=== PATIENT | male | born 1960 | race Caucasian/White ===

== ENCOUNTER → 2018-10-18 | Day surgery (SDC) | payer OTHER ==
[~2018-10-18] MED LIST: LACTATED RINGERS 1,000 ML IV SCH; LIDOCAINE 1% 20 ML VIAL (10MG/ML) FOR IV START INTRADERMA ONE; MIDAZOLAM 2 MG/2 ML VIAL ONE; PROPOFOL 10 MG/ML 20 ML VIAL IV ONE; fentaNYL (PF) 50 MCG/ML 2 ML AMP ONE
[2018-10-18 11:57] VITALS: RESP 16; TEMP 97.8
--- NOTE | 2018-10-18 13:09 | P.PCN ---
Date of Procedure: 10/18/18 Procedure(s) Performed: BRIEF HISTORY: Patient is a 58-year-old pleasant white male, scheduled for an elective colonoscopy as a part of screening for colorectal neoplasia. PROCEDURE PERFORMED: Colonoscopy with snare polypectomy. PREOPERATIVE DIAGNOSIS: Screening for colon cancer. IV sedation per Anesthesia. PROCEDURE: After informed consent was obtained, the patient, was brought into the endoscopy unit. IV sedation was administered by Anesthesia under continuous monitoring. Digital rectal examination was normal. Initially the Olympus CF-160 flexible video colonoscope was then inserted in the rectum, gradually advanced into the cecum without any difficulty. Careful examination was performed as the scope was gradually being withdrawn. Ileocecal valve and the appendiceal orifice were visualized and appeared normal. Prep was excellent. Mucosa of the cecum, ascending colon, transverse colon, descending colon, appeared normal. In the distal sigmoid colon there was a 5 mm polyp that was removed by snare polypectomy. In the mid rectum there were 2 polyps measuring 5 mm and 1 cm size both of which were removed by snare polypectomy. sigmoid colon, and rectum appeared normal. Retroflexion was performed in the rectum and grade 2 internal hemorrhoids were seen. The patient tolerated the procedure well. IMPRESSION: 5 mm and 1 cm polyps in the rectum status post polypectomy 5 mm sigmoid colon polyp status post snare polypectomy Grade 2 internal hemorrhoids RECOMMENDATIONS: Findings of this examination were discussed with the patient as well as his family. He was advised to follow with the biopsy results. If the biopsy shows an adenoma, he can have a repeat colonoscopy in 3-5 years.
[2018-10-18 13:58] VITALS: BP 125/80; PULSE 61
== END ==
LOC: ORWHC2ENDO 10:57
PROVIDERS: ATTEND Internal Medicine Gastroenterology
DX: Z12.11 Encounter for screening for malignant neoplasm of colon (principal); K63.5 Polyp of colon; D12.8 Benign neoplasm of rectum; K64.1 Second degree hemorrhoids; F17.210 Nicotine dependence, cigarettes, uncomplicated; I10 Essential (primary) hypertension; E78.5 Hyperlipidemia, unspecified; M06.9 Rheumatoid arthritis, unspecified; K21.9 Gastro-esophageal reflux disease without esophagitis; Z79.1 Long term (current) use of non-steroidal anti-inflammatories (NSAID); Z79.899 Other long term (current) drug therapy
CPT/HCPCS: 88305; 45385; J2250; J3010; J2704

== ENCOUNTER 2020-02-05 10:20 | Inpatient (IN) | payer OTHER ==
[2020-02-05] MEDS: NITROGLYCERIN SL TABS 0.4 MG TAB SUBLINGUAL STA ×2 (10:25→10:33)
[2020-02-05] MEDS ORDERED: HEPARIN SODIUM,PORCINE 5,000 UNIT/ML 1 ML VIAL IV ONE (10:25)
--- NOTE | 2020-02-05 10:31 | ED ---
Chest Pain HPI - General Chief Complaint: Chest Pain Stated Complaint: Stemi Time Seen by Provider: 02/05/20 10:20 Source: patient, RN notes reviewed, old records reviewed Mode of arrival: EMS Limitations: no limitations - History of Present Illness Initial Comments: This is a 60-year-old male with past medical history significant for smoking high blood pressure and high cholesterol. Patient states last night about 9:00 he started having chest discomfort. Patient states the pain radiated down both arms he was mildly short of breath per patient states it's a little better today but it kept him up most of the night and he continued to have pain today so he went to the urgent care and from there they sent him to the emergency department. Patient states the pain is still in his chest but not in his arms at this time. A shunt denies any recent fever chills or cough per patient denies lightheadedness or dizziness. Patient denies abdominal pain. Patient denies nausea vomiting diarrhea. Denies any swelling to the legs or calf tenderness. - Related Data Home Medications Medication Instructions Recorded Confirmed Atorvastatin Calcium [Lipitor] 40 mg PO DAILY 10/18/18 10/18/18 Cholecalciferol (Vitamin D3) 2,000 unit PO DAILY 10/18/18 10/18/18 [Vitamin D3] Cholecalciferol [Vitamin D3] 1,000 unit PO DAILY 10/18/18 10/18/18 Ibuprofen [Motrin] 1 tab PO Q6HR PRN 10/18/18 10/18/18 Lueders-3 Fatty Acids/Fish Oil [Fish 1 tab PO DAILY 10/18/18 10/18/18 Oil 1,000 mg Softgel] Omeprazole 20 mg PO DAILY 10/18/18 10/18/18 hydroCHLOROthiazide 25 mg PO DAILY 10/18/18 10/18/18 lisinopriL 20 mg PO DAILY 10/18/18 10/18/18 Allergies Allergy/AdvReac Type Severity Reaction Status Date / Time No Known Allergies Allergy Verified 02/05/20 10:21 Review of Systems ROS Statement: Those systems with pertinent positive or pertinent negative responses have been documented in the HPI. ROS Other: All systems not noted in ROS Statement are negative. Past Medical History Past Medical History: No Reported History, GERD/Reflux, Hyperlipidemia, Hypertension, Rheumatoid Arthritis (RA) History of Any Multi-Drug Resistant Organisms: None Reported Past Surgical History: Back Surgery, Hernia Repair Additional Past Surgical History / Comment(s): NASOSEPTO RECONSTRUCTION ELBOW RIGHT NERVE IMPAIRMENT FIXED UMBILICAL HERNIA FUSION C5 AND 6 Past Anesthesia/Blood Transfusion Reactions: No Reported Reaction Past Psychological History: No Psychological Hx Reported Smoking Status: Current every day smoker Past Alcohol Use History: Daily Past Drug Use History: None Reported General Exam - General Exam Comments Initial Comments: GENERAL: Patient is well-developed and well-nourished. Patient is nontoxic and well- hydrated and is in mild distress. ENT: Neck is soft and supple. No significant lymphadenopathy is noted. Oropharynx is clear. Moist mucous membranes. Neck has full range of motion without eliciting any pain. EYES: The sclera were anicteric and conjunctiva were pink and moist. Extraocular movements were intact and pupils were equal round and reactive to light. Eyelids were unremarkable. PULMONARY: Unlabored respirations. Good breath sounds bilaterally. No audible rales rhonchi or wheezing was noted. CARDIOVASCULAR: There is a regular rate and rhythm without any murmurs gallops or rubs. ABDOMEN: Soft and nontender with normal bowel sounds. SKIN: Skin is clear with no lesions or rashes and otherwise unremarkable. NEUROLOGIC: Patient is alert and oriented x3. Cranial nerves II through XII are grossly intact. Motor and sensory are also intact. Normal speech, volume and content. Symmetrical smile. MUSCULOSKELETAL: Normal extremities with adequate strength and full range of motion. No edema no calf tenderness LYMPHATICS: No significant lymphadenopathy is noted PSYCHIATRIC: Normal psychiatric evaluation. Limitations: no limitations Course Vital Signs 02/05/20 10:21 Temperature 98.1 F Pulse Rate 100 Respiratory 18 Rate Blood Pressure 184/112 O2 Sat by Pulse [address] [facility] EKG shows normal sinus rhythm at 93 bpm WV interval 226 dresses 92 QT interval 344 QTC is 427. Patient's EKG shows ST segment elevation in inferior leads II, III, and F aVF and ST segment depression in V5 and V6 1 and aVL. Patient symmetrical smile and the emergency department liter of fluid as well as a heparin bolus. I called a STEMI overhead I spoke with Dr. Barnes shortly thereafter. Critical Care Time Critical Care Time: Yes Total Critical Care Time: 35 Disposition Clinical Impression: ST elevation myocardial infarction (STEMI) Disposition: ADMITTED IP TO THIS HOSP Referrals: [facility],Clinic [Primary Care Provider] - 1-2 days Time of Disposition: 10:31
[2020-02-05 10:37] LABS: Basophils # (A) 0.1 k/uL (0-0.2); Basophils % (A) 0 %; Eosinophils # (A) 0.1 k/uL (0-0.7); Eosinophils % (A) 1 %; HCT 53.4 % (39.0-53.0); HGB 17.6 gm/dL (13.0-17.5); Lymphocytes # (A) 0.8 k/uL (1.0-4.8); Lymphocytes % (A) 6 %; MCH 30.4 pg (25.0-35.0); MCHC 32.9 g/dL (31.0-37.0); MCV 92.4 fL (80.0-100.0); Mean Platelet Volume 7.6; Monocytes # (A) 0.5 k/uL (0-1.0); Monocytes % (A) 3 %; Neutrophils # (A) 12.7 k/uL (1.3-7.7); Neutrophils % (A) 90 %; Platelet Count 212 k/uL (150-450); RBC 5.78 m/uL (4.30-5.90); RDW 13.1 % (11.5-15.5); WBC 14.2 k/uL (3.8-10.6)
[2020-02-05] MEDS ORDERED: NITROGLYCERIN OINT 1 INCH/GM PACKET TOPICAL STA (10:38)
--- NOTE | 2020-02-05 10:43 | XR ---
EXAMINATION TYPE: XR chest 1V portable DATE OF EXAM: 02/05/2020 COMPARISON: Chest x-ray March 20, 2013. HISTORY: Chest pain today. TECHNIQUE: Single AP portable frontal view of the chest is obtained. FINDINGS: Overlying EKG leads and right upper lung defibrillator pad on current study. There is no fo jose air space opacity, pleural effusion, or pneumothorax seen. The cardiac silhouette size remains w ithin normal limits. Partial visualization of fusion plate in the cervical spine. IMPRESSION: No acute cardiopulmonary process.
[2020-02-05 10:46] LABS: ALT 67 U/L (4-49); AST 135 U/L (17-59); African American GFR (CKD) >90 (>60 ml/min/1.73 sqM); Alkaline Phosphatase 95 U/L (38-126); Anion Gap 10 mmol/L; Blood Urea Nitrogen 13 mg/dL (9-20); Calcium 10.7 mg/dL (8.4-10.2); Carbon Dioxide 28 mmol/L (22-30); Chloride 100 mmol/L (98-107); Glucose 147 mg/dL (74-99); Magnesium 1.6 mg/dL (1.6-2.3); Non-African American GFR(CKD) >90 (>60 ml/min/1.73 sqM); Potassium 4.3 mmol/L (3.5-5.1); Sodium 138 mmol/L (137-145); Total Bilirubin 0.8 mg/dL (0.2-1.3); Total Protein 8.1 g/dL (6.3-8.2)
[2020-02-05 10:57] LABS: INR 0.9 (<1.2); Prothrombin Time 9.8 sec (9.0-12.0)
[2020-02-05] MEDS ORDERED: MIDAZOLAM 2 MG/2 ML VIAL IV ONE (11:01)
[2020-02-05] MEDS ORDERED: LIDOCAINE 1% INJ 10MG/ML (20 ML MDV) SQ ONE (11:02)
[2020-02-05] MEDS ORDERED: VERAPAMIL SYRINGE (5 MG/10 ML) INTRAARTER ONE (11:03)
[2020-02-05] MEDS ORDERED: BIVALIRUDIN BOLUS 250 MG/50 ML IV ONE (11:07)
[2020-02-05 11:09] LABS: Creatine Kinase MB 77.6 ng/mL (0.0-2.4)
[2020-02-05] MEDS ORDERED: BIVALIRUDIN 250 MG in SODIUM CHLORIDE 0.9% 50 ML IV ONE (11:09)
[2020-02-05] MEDS ORDERED: CLOPIDOGREL 75 MG TAB PO ONE (11:12)
[2020-02-05] MEDS ORDERED: IV FLUID CONTINUATION 1,000 ML IV ONE (11:12)
[2020-02-05 11:18] LABS: Partial Thromboplastin Time 21.5 sec (22.0-30.0)
[2020-02-05] MEDS ORDERED: NITROGLYCERIN 1000MCG/10ML SYRINGE INTRACORON ONE (11:22)
[2020-02-05 11:23] LABS: Troponin I 4.38 ng/mL (0.000-0.034)
[2020-02-05] MEDS ORDERED: ATROPINE SULFATE 0.1 MG/ML 10ML SYRINGE IV ONE (11:25)
[2020-02-05] MEDS ORDERED: IOPAMIDOL-370 100ML BTL INJ ONE ×2 (11:35→11:37)
[2020-02-05 11:55] LABS: Glucose,Whole Blood 115 mg/dL (75-99)
[2020-02-05] MEDS ORDERED: ATROPINE SULFATE 0.1 MG/ML 10ML SYRINGE IV PRN (14:24)
[2020-02-05] MEDS ORDERED: MAG HYDROX/AL HYDROX/SIMETH 30 ML CUP PO PRN (14:24)
[2020-02-05] MEDS ORDERED: RX INFO: IV CONTRAST WAS GIVEN 1 EACH MISC MISCELLANE PRN (14:24)
[2020-02-05] MEDS ORDERED: NITROGLYCERIN SL TABS 0.4 MG TAB SUBLINGUAL PRN (14:24)
--- NOTE | 2020-02-05 14:24 | P.CRDCN ---
History of Present Illness Consult date: 02/05/20 Chief complaint: Chest pain History of present illness: This is a pleasant 60-year-old gentleman with a past medical history significant for hypertension as well as dyslipidemia and smoking presented to the emergency room complaining of chest discomfort. He was in his usual state of health until last night when he started experiencing discomfort in the chest. He did not come to the hospital till today. In the emergency department an EKG was performed and revealed acute anterior ST patient myocardial infarction. 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 The left coronary system has mild disease only. He was chest pain-free by the end of the procedure. The patient is going to be admitted to the intensive. For the next 24-48 hours. He will be on dual antiplatelet therapy along with high intensity statin. We'll obtain an echocardiogram was Doppler. We'll follow-up with the patient. Past Medical History Past Medical History: No Reported History, GERD/Reflux, Hyperlipidemia, Hypertension, Rheumatoid Arthritis (RA) History of Any Multi-Drug Resistant Organisms: None Reported Past Surgical History: Back Surgery, Hernia Repair Additional Past Surgical History / Comment(s): NASOSEPTO RECONSTRUCTION ELBOW RIGHT NERVE IMPAIRMENT FIXED UMBILICAL HERNIA FUSION C5 AND 6 Past Anesthesia/Blood Transfusion Reactions: No Reported Reaction Past Psychological History: No Psychological Hx Reported Smoking Status: Current every day smoker Past Alcohol Use History: Daily Past Drug Use History: None Reported Medications and Allergies Home Medications Medication Instructions Recorded Confirmed Type Atorvastatin Calcium [Lipitor] 80 mg PO HS 10/18/18 02/05/20 History Cholecalciferol (Vitamin D3) 2,000 unit PO DAILY 10/18/18 02/05/20 History [Vitamin D3] Ibuprofen [Motrin] 400 mg PO Q6HR PRN 10/18/18 02/05/20 History Omeprazole 20 mg PO DAILY 10/18/18 02/05/20 History hydroCHLOROthiazide 12.5 mg PO DAILY 10/18/18 02/05/20 History lisinopriL 20 mg PO DAILY 10/18/18 02/05/20 History Multivitamins, Thera [Multivitamin 1 tab PO DAILY 02/05/20 02/05/20 History (formulary)] Allergies Allergy/AdvReac Type Severity Reaction Status Date / Time No Known Allergies Allergy Verified 02/05/20 10:29 Physical Exam Vitals: Vital Signs Temp Pulse Pulse Resp BP Pulse Ox 02/05/20 13:45 85 14 100/69 96 02/05/20 13:30 90 12 92/68 98 02/05/20 13:15 87 18 108/79 97 02/05/20 13:00 100 15 98/73 98 02/05/20 12:45 87 14 98/71 95 02/05/20 12:30 101 H 13 113/83 96 02/05/20 12:15 99 19 100/70 98 02/05/20 12:00 98.1 F 93 15 127/84 97 02/05/20 10:35 101 H 18 140/95 96 02/05/20 10:29 101 H 02/05/20 10:21 98.1 F 100 18 184/112 98 Intake and Output 02/04/20 02/05/20 02/05/20 22:59 06:59 14:59 Intake Total 955 Balance 955 Intake: IV 955 0.9 @ 75 225 Other: Weight 95.254 kg - Constitutional General appearance: no acute distress - Respiratory Respiratory: bilateral: CTA - Cardiovascular Rhythm: regular Heart sounds: normal: S1, S2 Results 02/05/20 10:25 02/05/20 10:27 Cardiac Enzymes 02/05/20 02/05/20 Range/Units 10:27 10:27 AST 135 H (17-59) U/L CK-MB (CK-2) 77.6 H (0.0-2.4) ng/mL Troponin I 4.380 H* (0.000-0.034) ng/mL Coagulation 02/05/20 Range/Units 10:27 PT 9.8 (9.0-12.0) sec APTT 21.5 L (22.0-30.0) sec CBC 02/05/20 Range/Units 10:25 WBC 14.2 H (3.8-10.6) k/uL RBC 5.78 (4.30-5.90) m/uL Hgb 17.6 H (13.0-17.5) gm/dL Hct 53.4 H (39.0-53.0) % Plt Count 212 (150-450) k/uL Comprehensive Metabolic Panel 02/05/20 Range/Units 10:27 Sodium 138 (137-145) mmol/L Potassium 4.3 (3.5-5.1) mmol/L Chloride 100 (98-107) mmol/L Carbon Dioxide 28 (22-30) mmol/L BUN 13 (9-20) mg/dL Creatinine 0.81 (0.66-1.25) mg/dL Glucose 147 H (74-99) mg/dL Calcium 10.7 H (8.4-10.2) mg/dL AST 135 H (17-59) U/L ALT 67 H (4-49) U/L Alkaline Phosphatase 95 (38-126) U/L Total Protein 8.1 (6.3-8.2) g/dL Albumin 5.0 (3.5-5.0) g/dL Intake and Output 02/04/20 02/05/20 02/05/20 22:59 06:59 14:59 Intake Total 955 Balance 955 Intake: IV 955 0.9 @ 75 225 Other: Weight 95.254 kg Patient Weight 02/06/20 06:59 Weight 95.254 kg 02/05/20 10:25 02/05/20 10:27 Assessment and Plan Assessment: Assessment #[address] patient myocardial infarction #2 significant history of smoking #3 hypertension #4 dyslipidemia Plan #1 dual antiplatelet therapy #2 high intensity statin #3 anti-ischemic medication #4 an echocardiogram was Doppler #5 follow-up with the patient Thank you for allowing us participate in his care
[2020-02-05] MEDS ORDERED: SODIUM CHLORIDE 0.9% 1,000 ML IV SCH (14:30)
--- NOTE | 2020-02-05 14:46 | P.HPIM ---
History of Present Illness patient was a 6-year-old male came in with compensative chest discomfort restarted yesterday night. Patient has pain involving the whole of her left side of the chest along with the left arm pain. Patient pain is pressure-like sensation , denied any diaphoresis but patient is found to have acute inferior ST elevations on EKG was taken to cath labN patient had occlusion of mid RCA and underwent a stenting of RCA. Patient upon his syncope and elevated as well. Review of Systems REVIEW OF SYSTEMS: CONSTITUTIONAL: No fever, no malaise, no fatigue. HEENT: No recent visual problems or hearing problems. Denied any sore throat. CARDIOVASCULAR: No orthopnea, PND, no palpitations, no syncope. PULMONARY: No shortness of breath, no cough, no hemoptysis. GASTROINTESTINAL: No diarrhea, no nausea, no vomiting, no abdominal pain. NEUROLOGICAL: No headaches, no weakness, no numbness. HEMATOLOGICAL: Denies any bleeding or petechiae. GENITOURINARY: Denies any burning micturition, frequency, or urgency. MUSCULOSKELETAL/RHEUMATOLOGICAL: Denies any joint pain, swelling, or any muscle pain. ENDOCRINE: Denies any polyuria or polydipsia. The rest of the 14-point review of systems is negative. Past Medical History Past Medical History: No Reported History, GERD/Reflux, Hyperlipidemia, Hypertension, Rheumatoid Arthritis (RA) History of Any Multi-Drug Resistant Organisms: None Reported Past Surgical History: Back Surgery, Hernia Repair Additional Past Surgical History / Comment(s): NASOSEPTO RECONSTRUCTION ELBOW RIGHT NERVE IMPAIRMENT FIXED UMBILICAL HERNIA FUSION C5 AND 6 Past Anesthesia/Blood Transfusion Reactions: No Reported Reaction Past Psychological History: No Psychological Hx Reported Smoking Status: Current every day smoker Past Alcohol Use History: Daily Past Drug Use History: None Reported Medications and Allergies Home Medications Medication Instructions Recorded Confirmed Type Atorvastatin Calcium [Lipitor] 80 mg PO HS 10/18/18 02/05/20 History Cholecalciferol (Vitamin D3) 2,000 unit PO DAILY 10/18/18 02/05/20 History [Vitamin D3] Ibuprofen [Motrin] 400 mg PO Q6HR PRN 10/18/18 02/05/20 History Omeprazole 20 mg PO DAILY 10/18/18 02/05/20 History hydroCHLOROthiazide 12.5 mg PO DAILY 10/18/18 02/05/20 History lisinopriL 20 mg PO DAILY 10/18/18 02/05/20 History Multivitamins, Thera [Multivitamin 1 tab PO DAILY 02/05/20 02/05/20 History (formulary)] Allergies Allergy/AdvReac Type Severity Reaction Status Date / Time No Known Allergies Allergy Verified 02/05/20 10:29 Physical Exam Vitals: Vital Signs Temp Pulse Pulse Resp BP Pulse Ox 02/05/20 13:45 85 14 100/69 96 02/05/20 13:30 90 12 92/68 98 02/05/20 13:15 87 18 108/79 97 02/05/20 13:00 100 15 98/73 98 02/05/20 12:45 87 14 98/71 95 02/05/20 12:30 101 H 13 113/83 96 02/05/20 12:15 99 19 100/70 98 02/05/20 12:00 98.1 F 93 15 127/84 97 02/05/20 10:35 101 H 18 140/95 96 02/05/20 10:29 101 H 02/05/20 10:21 98.1 F 100 18 184/112 98 Intake and Output 02/04/20 02/05/20 02/05/20 22:59 06:59 14:59 Intake Total 955 Balance 955 Intake: IV 955 0.9 @ 75 225 Other: Weight 95.254 kg PHYSICAL EXAMINATION: GENERAL: The patient is alert and oriented x3, not in any acute distress. Well developed, well nourished. HEENT: Pupils are round and equally reacting to light. EOMI. No scleral icterus. No conjunctival pallor. Normocephalic, atraumatic. No pharyngeal erythema. No thyromegaly. CARDIOVASCULAR: S1 and S2 present. No murmurs, rubs, or gallops. PULMONARY: Chest is clear to auscultation, no wheezing or crackles. ABDOMEN: Soft, nontender, nondistended, normoactive bowel sounds. No palpable organomegaly. MUSCULOSKELETAL: No joint swelling or deformity. EXTREMITIES: No cyanosis, clubbing, or pedal edema. NEUROLOGICAL: Gross neurological examination did not reveal any focal deficits. SKIN: No rashes. Results CBC & Chem 7: 02/05/20 10:25 02/05/20 10:27 Labs: Abnormal Lab Results - Last 24 Hours (Table) 02/05/20 02/05/20 02/05/20 Range/Units 10:25 10:27 10:27 WBC 14.2 H (3.8-10.6) k/uL Hgb 17.6 H (13.0-17.5) gm/dL Hct 53.4 H (39.0-53.0) % Neutrophils # 12.7 H (1.3-7.7) k/uL Lymphocytes # 0.8 L (1.0-4.8) k/uL APTT 21.5 L (22.0-30.0) sec Glucose 147 H (74-99) mg/dL POC Glucose (mg/dL) (75-99) mg/dL Calcium 10.7 H (8.4-10.2) mg/dL AST 135 H (17-59) U/L ALT 67 H (4-49) U/L Total Creatine Kinase (55-170) U/L CK-MB (CK-2) (0.0-2.4) ng/mL Troponin I (0.000-0.034) ng/mL 02/05/20 02/05/20 Range/Units 10:27 11:53 WBC (3.8-10.6) k/uL Hgb (13.0-17.5) gm/dL Hct (39.0-53.0) % Neutrophils # (1.3-7.7) k/uL Lymphocytes # (1.0-4.8) k/uL APTT (22.0-30.0) sec Glucose (74-99) mg/dL POC Glucose (mg/dL) 115 H (75-99) mg/dL Calcium (8.4-10.2) mg/dL AST (17-59) U/L ALT (4-49) U/L Total Creatine Kinase 1356 H* (55-170) U/L CK-MB (CK-2) 77.6 H (0.0-2.4) ng/mL Troponin I 4.380 H* (0.000-0.034) ng/mL Assessment and Plan Plan: I will acute ST elevation microinfarction: Patient underwent cardiac recent stenting of the RCA patient is presently and urine antiplatelet therapyechocardiac exam is pending patient is a low-dose of lisinopril. -Hypertension : hydrochlorothiazide is being held patient is bit hypotensive secondary to inferior wall NM. -hyperlipidemia -Extensive nicotine use patient is agreeable to quit smoking at this time -gastroesophageal reflux disease
--- NOTE | 2020-02-05 15:47 | CC ---
CARDIAC CATHETERIZATION REPORT DATE OF SERVICE: 02/05/2020 PERFORMING PHYSICIAN: Raghavendra Barnes M.D. PROCEDURES PERFORMED: 1. Selective right and left coronary angiogram. 2. Left heart catheterization. 3. Successful stenting of the mid right coronary artery using a 3.5 x 23 mm Xience drug-eluting stent which was post-dilated using a 4 mm balloon with an excellent angiographic result and reduction of stenosis from 100% to 0%. 4. Aspiration thrombectomy from the right coronary artery. INDICATION: This is a very pleasant 60-year-old gentleman with history of smoking as well as hypertension and dyslipidemia who who presented to the emergency department with chest discomfort and was found to have an acute inferior ST-elevation myocardial infarction. The decision was made for emergent heart catheterization and percutaneous coronary intervention. APPROACH: Right radial artery. COMPLICATIONS: None. LEVEL OF SEDATION: Moderate, with sedation length of 37 minutes. PROCEDURE DESCRIPTION: After obtaining informed consent, the patient was brought to the cardiac cath lab technologist. The right radial artery was cannulated using micropuncture technique. The micropuncture wire passed easily. Then I placed a 6-[place] sheath in the right radial artery. I gave the patient 2 mg of verapamil IA. I did after that selective right and left coronary angiogram with JR4 and JL3.5 catheters. After that I did left heart catheterization using the JR4 catheter which crossed the aortic valve. Then I did pullback across the valve. After that I did intervene on the RCA. Please see separate paragraph for that. SELECTIVE CORONARY ANGIOGRAM: 1. The right coronary artery is a large-caliber vessel and it is a dominant vessel. The RCA is 100% occluded in the proximal to mid portion. 2. The left main appeared to be angiographically normal. It bifurcates into LCX and LAD. 3. The LCX is a large-caliber vessel and it is a nondominant vessel. The LCX is angiographically normal. In the proximal to mid portion it gives rise to a large OM branch which trifurcate into 3 sub-branches. All appeared to be angiographically normal. 4. The LAD. The proximal LAD appeared to be angiographically normal. The mid LAD has mild disease only by the bifurcation of a large diagonal branch which appeared to be angiographically normal. The LAD distally appeared to be normal. 5. HEMODYNAMICS: The LVEDP was 10 to 12 mmHg without significant gradient across the aortic valve. PERCUTANEOUS CORONARY INTERVENTION OF THE RIGHT CORONARY ARTERY: Anticoagulation was initiated using Angiomax. Subsequently I did engage the RCA using JR4 guide. I did wire it and cross the acute total occlusion using a run-through wire. After that I did aspiration thrombectomy using an [place] catheter before I did balloon angioplasty using a 3.0 x 12 mm balloon. After that I deployed a 3.5 x 23 mm Xience DANIA where the stent was positioned under fluoroscopic guidance and deployed under 12 atmospheres for 20 seconds. I post-dilated the stent using a 4 mm balloon. The final angiogram showed excellent angiographic results and the procedure was completed without any complication. CONCLUSION: 1. Acute inferior ST-elevation myocardial infarction. 2. Acute total occlusion of the RCA. I did successful stenting of the RCA with adjunctive use of aspiration thrombectomy. 3. Mild disease involving the left coronary system. POST-PROCEDURE MANAGEMENT: 1. Dual anti-platelet therapy. 2. Risk factor modifications. 3. Follow up with the patient. MMODL / IJN: [id number] /
[2020-02-05] MEDS: SODIUM CHLORIDE 0.9% 250 ML IV SCH ×2 (20:49→20:55)
--- NOTE | 2020-02-05 20:56 | ECHOF ---
Referral Reason:stemi MEASUREMENTS -------- HEIGHT: 180.3 cm WEIGHT: 95.3 kg BP: IVSd: 1.3 cm (0.6 - 1.1) LVIDd: 4.3 cm (3.9 - 5.3) LVPWd: 1.5 cm (0.6 - 1.1) IVSs: 1.6 cm LVIDs: 3.0 cm LVPWs: 1.7 cm LA Diam: 4.1 cm (2.7 - 3.8) RVIDd: 3.3 cm (< 3.3) LAESV Index (A-L): 29.96 ml/m Ao Diam: 3.2 cm (2.0 - 3.7) LA Diam: 4.4 cm (2.7 - 3.8) AV Cusp: 2.2 cm (1.5 - 2.6) EPSS: 0.4 cm MV E Michael: 0.82 m/s MV DecT: 132 ms MV A Michael: 0.39 m/s MV E/A Ratio: 2.08 RAP: 5.00 mmHg RVSP: 18.98 mmHg MV EF SLOPE: 120.01 mm/s (70 - 150) MV EXCURSION: 21.52 mm (> 18.000) FINDINGS -------- Sinus rhythm. This was a technically good study. The left ventricular size is normal. There is mild concentric left ventricular hypertrophy. Overa ll left ventricular systolic function is mild-moderately impaired with, an EF between 40 - 45 %. In ferior Hypokinesis Basal septal hypokinesis The right ventricle is normal in size. The left atrium is mildly dilated. Normal LA size by volume 22+/-6 ml/m2. The right atrial size is normal. The aortic valve is trileaflet, and appears structurally normal. No aortic stenosis or regurgitation. Mild mitral regurgitation is present. Mild tricuspid regurgitation present. Right ventricular systolic pressure is normal at < 35 mmHg. There is no pulmonic regurgitation present. The aortic root size is normal. There is no pericardial effusion. CONCLUSIONS -------- 1. The left ventricular size is normal. 2. There is mild concentric left ventricular hypertrophy. 3. Overall left ventricular systolic function is mild-moderately impaired with, an EF between 40 - 45 %. 4. Inferior Hypokinesis 5. Basal septal hypokinesis 6. The right ventricle is normal in size. 7. The left atrium is mildly dilated. 8. The right atrial size is normal. 9. Mild mitral regurgitation is present. 10. Mild tricuspid regurgitation present. 11. Right ventricular systolic pressure is normal at < 35 mmHg. 12. There is no pulmonic regurgitation present. DECAL CUTTER: Tsering Banerjee RDCS
[2020-02-05] MEDS: ATORVASTATIN 80 MG TAB PO SCH (21:17)
[2020-02-05 22:48] LABS: Calcium 9.1 mg/dL (8.4-10.2); Magnesium 1.6 mg/dL (1.6-2.3); Potassium 4.2 mmol/L (3.5-5.1)
[2020-02-06] MEDS ORDERED: DOPamine DRIP 800 MG in DEXTROSE/WATER 1 250ML.BAG IV SCH (00:15)
[2020-02-06] MEDS: MAGNESIUM SULFATE-D5W PMX 1 GM in DEXTROSE/WATER 1 100ML.BAG IVPB SCH ×2 (00:17→02:10)
[2020-02-06] MEDS: SODIUM CHLORIDE 0.9% 1,000 ML IV SCH ×3 (00:25→20:47)
[2020-02-06] MEDS: ZOLPIDEM 5 MG TAB PO PRN (00:32)
[2020-02-06] MEDS: SODIUM CHLORIDE 0.9% 250 ML IV SCH ×7 (02:10→04:40)
[2020-02-06 05:51] LABS: Basophils % (A) 0 %; Eosinophils # (A) 0.1 k/uL (0-0.7); Eosinophils % (A) 1 %; HCT 46.4 % (39.0-53.0); HGB 15.3 gm/dL (13.0-17.5); Lymphocytes # (A) 1.4 k/uL (1.0-4.8); Lymphocytes % (A) 10 %; MCH 30.9 pg (25.0-35.0); MCHC 32.9 g/dL (31.0-37.0); MCV 93.8 fL (80.0-100.0); Mean Platelet Volume 8.1; Monocytes # (A) 0.9 k/uL (0-1.0); Monocytes % (A) 7 %; Neutrophils # (A) 11.4 k/uL (1.3-7.7); Neutrophils % (A) 82 %; Platelet Count 164 k/uL (150-450); RBC 4.95 m/uL (4.30-5.90); RDW 13.2 % (11.5-15.5)
[2020-02-06 06:02] LABS: Calcium 8.9 mg/dL (8.4-10.2); Magnesium 2.4 mg/dL (1.6-2.3); Potassium 4.2 mmol/L (3.5-5.1)
[2020-02-06] MEDS ORDERED: SODIUM CHLORIDE 0.9% 500 ML 200 ML IV ONE (06:59)
--- NOTE | 2020-02-06 07:32 | P.PN ---
Subjective Progress Note Date: 02/06/20 Principal diagnosis: Acute coronary syndrome This is a 60-year-old gentleman with history of smoking presented to the hospital with chest discomfort and was diagnosed with acute inferior ST patient myocardial infarction be he underwent an emergent heart catheterization and was found to have occluded RCA which was opened and stented with a good angiographic results. He was found to have only mild disease involving the left coronary system. The patient was seen today, February 052019. He is asymptomatic. The pressure has been marginally low and he was assaulted overnight on small dose of dopamine. The pressure is low probably because of RV infarct. I am going to wean him from the dopamine and give him a bolus of 200 mL of 0.9 normal saline. Beside that he is on dual antiplatelet therapy and high intensity statin. The echo revealed mildly impaired LV function Objective - Vital Signs Vital signs: Vital Signs Temp 97.8 F 02/06/20 04:00 Pulse 94 02/06/20 07:00 Resp 18 02/06/20 07:00 BP 89/60 02/06/20 07:00 Pulse Ox 97 02/06/20 07:00 Intake & Output 02/05/20 02/06/20 02/06/20 18:59 06:59 18:59 Intake Total 1330 1079.644 100 Output Total 250 0 Balance 1330 829.644 100 Weight 95.254 kg 95.5 kg Intake: IV 1330 1075 100 0.9 @ 75 600 375 Sodium Chloride 0.9% 1, 700 100 000 ml @ 100 mls/hr IV . Q10H [facility] Rx#:[id number] Intake, IV Titration 4.644 Amount DOPamine DRIP 800 mg In 4.644 Dextrose/Water 1 250ml. bag @ Titrate IV .Q0M [facility] Rx#:[id number] Output: Urine 250 0 Other: Voiding Method Toilet Urinal # Voids 1 1 - Constitutional General appearance: Present: no acute distress - Respiratory Respiratory: bilateral: CTA - Cardiovascular Rhythm: regular Heart sounds: normal: S1, S2 - Labs CBC & Chem 7: 02/06/20 04:56 02/06/20 04:56 Labs: Abnormal Lab Results - Last 24 Hours (Table) 02/05/20 02/05/20 02/05/20 Range/Units 10:25 10:27 10:27 WBC 14.2 H (3.8-10.6) k/uL Hgb 17.6 H (13.0-17.5) gm/dL Hct 53.4 H (39.0-53.0) % Neutrophils # 12.7 H (1.3-7.7) k/uL Lymphocytes # 0.8 L (1.0-4.8) k/uL APTT 21.5 L (22.0-30.0) sec Sodium (137-145) mmol/L BUN (9-20) mg/dL Creatinine (0.66-1.25) mg/dL Glucose 147 H (74-99) mg/dL POC Glucose (mg/dL) (75-99) mg/dL Calcium 10.7 H (8.4-10.2) mg/dL Magnesium (1.6-2.3) mg/dL AST 135 H (17-59) U/L ALT 67 H (4-49) U/L Total Creatine Kinase (55-170) U/L CK-MB (CK-2) (0.0-2.4) ng/mL Troponin I (0.000-0.034) ng/mL 02/05/20 02/05/20 02/05/20 Range/Units 10:27 11:53 22:06 WBC (3.8-10.6) k/uL Hgb (13.0-17.5) gm/dL Hct (39.0-53.0) % Neutrophils # (1.3-7.7) k/uL Lymphocytes # (1.0-4.8) k/uL APTT (22.0-30.0) sec Sodium 134 L (137-145) mmol/L BUN (9-20) mg/dL Creatinine 1.60 H (0.66-1.25) mg/dL Glucose 118 H (74-99) mg/dL POC Glucose (mg/dL) 115 H (75-99) mg/dL Calcium (8.4-10.2) mg/dL Magnesium (1.6-2.3) mg/dL AST (17-59) U/L ALT (4-49) U/L Total Creatine Kinase 1356 H* (55-170) U/L CK-MB (CK-2) 77.6 H (0.0-2.4) ng/mL Troponin I 4.380 H* (0.000-0.034) ng/mL 02/06/20 02/06/20 Range/Units 04:56 04:56 WBC 14.0 H (3.8-10.6) k/uL Hgb (13.0-17.5) gm/dL Hct (39.0-53.0) % Neutrophils # 11.4 H (1.3-7.7) k/uL Lymphocytes # (1.0-4.8) k/uL APTT (22.0-30.0) sec Sodium 133 L (137-145) mmol/L BUN 24 H (9-20) mg/dL Creatinine 2.03 H (0.66-1.25) mg/dL Glucose 111 H (74-99) mg/dL POC Glucose (mg/dL) (75-99) mg/dL Calcium (8.4-10.2) mg/dL Magnesium 2.4 H (1.6-2.3) mg/dL AST (17-59) U/L ALT (4-49) U/L Total Creatine Kinase (55-170) U/L CK-MB (CK-2) (0.0-2.4) ng/mL Troponin I (0.000-0.034) ng/mL Assessment and Plan Assessment: Assessment #[address] patient myocardial infarction #2 significant history of smoking #3 hypertension #4 dyslipidemia Plan #1 dual antiplatelet therapy #2 high intensity statin #3 DC lisinopril in view of the marginal blood pressure #4 monitor the patient in the ICU for additional 24 hours
[2020-02-06] MEDS: ASPIRIN 325 MG TAB PO SCH (08:18)
[2020-02-06] MEDS: CLOPIDOGREL 75 MG TAB PO SCH (08:18)
--- NOTE | 2020-02-06 10:53 | ECHOF ---
Referral Reason:post-heart cath with stent MEASUREMENTS -------- HEIGHT: 185.4 cm WEIGHT: 95.3 kg BP: 76/46 RVIDd: 3.9 cm (< 3.3) RAP: 5.00 mmHg RVSP: 20.82 mmHg FINDINGS -------- Sinus rhythm. This was a technically good study. Limited Study Overall left ventricular systolic function is normal with, an EF between 55 - 60 %. Basal inferior LV wall motion is hypokinetic. The right ventricle is moderately enlarged. The aortic valve is trileaflet and appears structurally normal. Mild mitral regurgitation is present. Mild tricuspid regurgitation present. There is no pericardial effusion. CONCLUSIONS -------- 1. Limited Study 2. Overall left ventricular systolic function is normal with, an EF between 55 - 60 %. 3. Basal inferior LV wall motion is hypokinetic. 4. The right ventricle is moderately enlarged. 5. Mild mitral regurgitation is present. 6. Mild tricuspid regurgitation present. 7. There is no pericardial effusion. JUNIOR DATA ANALYST: Ariela Hartman RDCS
[2020-02-06 11:31] VITALS: BMI 27.8
--- NOTE | 2020-02-06 14:03 | P.PN ---
Subjective 60-year-old male with admitted for inferior wall ST elevation microinfarction. Patient has ejection fraction of around 40-45% secondary to stent myocardium and acute systolic dysfunction patient is not in heart failure exacerbation patient was actually hypotensive which is not unexpected of for inferior wall SD. Patient is actually receiving IV fluids at this time. Patient is on dual antiplatelet therapy, and dobutamine drip. She is not on beta florencio because of bradycardia for which patient is receiving atropine Constitutional: Denied any fatigue denied any fever. Cardio vascular: denied any chest pain, palpitations Gastrointestinal denied any nausea vomiting Pulmonary: Denied any shortness of breath cough Neurologic denied any new focal deficits All inpatient medications were reviewed and appropriate changes in these medications as dictated in the interval history and assessment and plan. Objective - Vital Signs Vital signs: Vital Signs Temp 98 F 02/06/20 12:00 Pulse 75 02/06/20 13:00 Resp 0 L 02/06/20 13:00 BP 100/61 02/06/20 13:00 Pulse Ox 96 02/06/20 13:00 Intake & Output 02/05/20 02/06/20 02/06/20 18:59 06:59 18:59 Intake Total 1330 1079.644 700 Output Total 250 900 Balance 1330 829.644 -200 Weight 95.254 kg 95.5 kg 95.5 kg Intake: IV 1330 1075 700 0.9 @ 75 600 375 Sodium Chloride 0.9% 1, 700 700 000 ml @ 100 mls/hr IV . Q10H [facility] Rx#:[id number] Intake, IV Titration 4.644 Amount DOPamine DRIP 800 mg In 4.644 Dextrose/Water 1 250ml. bag @ Titrate IV .Q0M [facility] Rx#:[id number] Output: Urine 250 900 Other: Voiding Method Toilet Toilet Urinal Urinal # Voids 1 1 - Exam PHYSICAL EXAMINATION: GENERAL: The patient is alert and oriented x3, not in any acute distress. Well developed, well nourished. HEENT: Pupils are round and equally reacting to light. EOMI. No scleral icterus. No conjunctival pallor. Normocephalic, atraumatic. No pharyngeal erythema. No thyromegaly. CARDIOVASCULAR: S1 and S2 present. No murmurs, rubs, or gallops. PULMONARY: Chest is clear to auscultation, no wheezing or crackles. ABDOMEN: Soft, nontender, nondistended, normoactive bowel sounds. No palpable organomegaly. MUSCULOSKELETAL: No joint swelling or deformity. EXTREMITIES: No cyanosis, clubbing, or pedal edema. NEUROLOGICAL: Gross neurological examination did not reveal any focal deficits. SKIN: No rashes. - Labs CBC & Chem 7: 02/06/20 04:56 02/06/20 04:56 Labs: Abnormal Lab Results - Last 24 Hours (Table) 02/05/20 02/06/20 02/06/20 Range/Units 22:06 04:56 04:56 WBC 14.0 H (3.8-10.6) k/uL Neutrophils # 11.4 H (1.3-7.7) k/uL Sodium 134 L 133 L (137-145) mmol/L BUN 24 H (9-20) mg/dL Creatinine 1.60 H 2.03 H (0.66-1.25) mg/dL Glucose 118 H 111 H (74-99) mg/dL Magnesium 2.4 H (1.6-2.3) mg/dL Assessment and Plan Plan: -acute ST elevation myocardial infarction: Patient underwent cardiac recent stenting of the RCA patient is presently and urine antiplatelet , statin. Patient is also on dobutamine IV fluids because of hypotension atropine because of bradycardia. -Hypertension : hydrochlorothiazide is being held patient is bit hypotensive secondary to inferior wall SD. -hyperlipidemia -Extensive nicotine use patient is agreeable to quit smoking at this time -gastroesophageal reflux disease
[2020-02-06] MEDS: ATORVASTATIN 80 MG TAB PO SCH (20:43)
--- NOTE | 2020-02-07 06:29 | P.PN ---
Subjective Progress Note Date: 02/07/20 Principal diagnosis: Acute coronary syndrome This is a 60-year-old gentleman with history of smoking presented to the hospital with chest discomfort and was diagnosed with acute inferior ST patient myocardial infarction be he underwent an emergent heart catheterization and was found to have occluded RCA which was opened and stented with a good angiographic results. He was found to have only mild disease involving the left coronary system. The patient was seen today February [id number]. He remains asymptomatic from a perivascular standpoint of view. Hemodynamically the pressure has been marginal. Unfortunately the creatinine went up which I think all related to low blood pressure as well as a component of contrast-induced nephropathy. I'm going to give the patient a bolus of IV fluid at this point. Avoid any nephrotoxic medications. He is not on any blood pressure medications. We'll continue dual antiplatelet therapy along with high intensity statin. The echo revealed normal LV function. Objective - Vital Signs Vital signs: Vital Signs Temp 98.1 F 02/07/20 04:00 Pulse 58 L 02/07/20 05:00 Resp 22 02/07/20 05:00 BP 87/63 02/07/20 05:00 Pulse Ox 95 02/07/20 05:00 Intake & Output 02/06/20 02/06/20 02/07/20 06:59 18:59 06:59 Intake Total 4701.258 2788 1400 Output Total 250 1500 550 Balance 829.644 -300 850 Weight 95.5 kg 95.5 kg 96.7 kg Intake: IV 1075 1200 1100 0.9 @ 75 375 Sodium Chloride 0.9% 1, 700 1200 1100 000 ml @ 100 mls/hr IV . Q10H [facility] Rx#:[id number] Intake, IV Titration 4.644 Amount DOPamine DRIP 800 mg In 4.644 Dextrose/Water 1 250ml. bag @ Titrate IV .Q0M [facility] Rx#:[id number] Oral 300 Output: Urine 250 1500 550 Other: Voiding Method Toilet Toilet Toilet Urinal Urinal Urinal # Voids 1 - Constitutional General appearance: Present: no acute distress - Respiratory Respiratory: bilateral: CTA - Cardiovascular Rhythm: regular Heart sounds: normal: S1, S2 - Labs CBC & Chem 7: 02/06/20 04:56 02/06/20 04:56 Assessment and Plan Assessment: Assessment #[address] patient myocardial infarction #2 significant history of smoking #3 hypertension #4 dyslipidemia Plan #1 dual antiplatelet therapy #2 high intensity statin #3 avoid any blood pressure medications #4 avoid any nephrotoxic medications #5 IV fluid #6 follow-up with the patient
[2020-02-07] MEDS ORDERED: SODIUM CHLORIDE 0.9% 500 ML 250 ML IV ONE (06:33)
[2020-02-07] MEDS: SODIUM CHLORIDE 0.9% 1,000 ML IV SCH ×2 (06:57→15:56)
[2020-02-07 08:07] LABS: HCT 42.4 % (39.0-53.0); HGB 13.7 gm/dL (13.0-17.5); MCH 30.4 pg (25.0-35.0); MCHC 32.4 g/dL (31.0-37.0); MCV 93.9 fL (80.0-100.0); Mean Platelet Volume 7.7; Platelet Count 148 k/uL (150-450); RBC 4.52 m/uL (4.30-5.90); RDW 13.2 % (11.5-15.5)
[2020-02-07 08:19] LABS: ALT 91 U/L (4-49); AST 241 U/L (17-59); African American GFR (CKD) >90 (>60 ml/min/1.73 sqM); Albumin 3.2 g/dL (3.5-5.0); Alkaline Phosphatase 63 U/L (38-126); Anion Gap 1 mmol/L; Blood Urea Nitrogen 22 mg/dL (9-20); Calcium 8.6 mg/dL (8.4-10.2); Carbon Dioxide 28 mmol/L (22-30); Chloride 109 mmol/L (98-107); Glucose 144 mg/dL (74-99); Non-African American GFR(CKD) >90 (>60 ml/min/1.73 sqM); Potassium 4.2 mmol/L (3.5-5.1); Sodium 138 mmol/L (137-145); Total Bilirubin 0.8 mg/dL (0.2-1.3); Total Protein 5.6 g/dL (6.3-8.2)
[2020-02-07] MEDS: ASPIRIN 325 MG TAB PO SCH (09:29)
[2020-02-07] MEDS: CLOPIDOGREL 75 MG TAB PO SCH (09:29)
[2020-02-07] MEDS ORDERED: IPRATROPIUM-ALBUTEROL 3 ML NEB INHALATION PRN (12:06)
--- NOTE | 2020-02-07 13:10 | P.PN ---
Subjective 60-year-old male with admitted for inferior wall ST elevation microinfarction. Patient has ejection fraction of around 40-45% secondary to stent myocardium and acute systolic dysfunction patient is not in heart failure exacerbation patient was actually hypotensive which is not unexpected of for inferior wall [place]. Patient is actually receiving IV fluids at this time. Patient is on dual antiplatelet therapy, and dobutamine drip. She is not on beta florencio because of bradycardia for which patient is receiving atropine 02/07/2020 Patient is clinically doing well and remains on IV fluids blood pressure and heart rate are stable at this time. Possibly of discharge tomorrow Constitutional: Denied any fatigue denied any fever. Cardio vascular: denied any chest pain, palpitations Gastrointestinal denied any nausea vomiting Pulmonary: Denied any shortness of breath cough Neurologic denied any new focal deficits All inpatient medications were reviewed and appropriate changes in these medications as dictated in the interval history and assessment and plan. Objective - Vital Signs Vital signs: Vital Signs Temp 98.3 F 02/07/20 12:00 Pulse 68 02/07/20 12:00 Resp 16 02/07/20 12:00 BP 110/80 02/07/20 12:00 Pulse Ox 94 L 02/07/20 12:00 Intake & Output 02/06/20 02/07/20 02/07/20 18:59 06:59 18:59 Intake Total 1200 1500 400 Output Total 1500 550 325 Balance -300 950 75 Weight 95.5 kg 96.7 kg Intake: IV 1200 1200 400 Sodium Chloride 0.9% 1, 1200 1200 400 000 ml @ 100 mls/hr IV . Q10H [facility] Rx#:[id number] Oral 300 Output: Urine 1500 550 325 Other: Voiding Method Toilet Toilet Urinal Urinal - Exam PHYSICAL EXAMINATION: GENERAL: The patient is alert and oriented x3, not in any acute distress. Well developed, well nourished. HEENT: Pupils are round and equally reacting to light. EOMI. No scleral icterus. No conjunctival pallor. Normocephalic, atraumatic. No pharyngeal erythema. No thyromegaly. CARDIOVASCULAR: S1 and S2 present. No murmurs, rubs, or gallops. PULMONARY: Chest is clear to auscultation, no wheezing or crackles. ABDOMEN: Soft, nontender, nondistended, normoactive bowel sounds. No palpable organomegaly. MUSCULOSKELETAL: No joint swelling or deformity. EXTREMITIES: No cyanosis, clubbing, or pedal edema. NEUROLOGICAL: Gross neurological examination did not reveal any focal deficits. SKIN: No rashes. - Labs CBC & Chem 7: 02/07/20 07:39 02/07/20 07:39 Labs: Abnormal Lab Results - Last 24 Hours (Table) 02/07/20 02/07/20 Range/Units 07:39 07:39 Plt Count 148 L (150-450) k/uL Chloride 109 H (98-107) mmol/L BUN 22 H (9-20) mg/dL Glucose 144 H (74-99) mg/dL AST 241 H (17-59) U/L ALT 91 H (4-49) U/L Total Protein 5.6 L (6.3-8.2) g/dL Albumin 3.2 L (3.5-5.0) g/dL Assessment and Plan Plan: -acute ST elevation myocardial infarction: Patient underwent cardiac recent stenting of the RCA patient is presently and urine antiplatelet , statin. Patient is also on dobutamine IV fluids because of hypotension atropine because of bradycardia. -Hypertension : hydrochlorothiazide is being held patient is bit hypotensive secondary to inferior wall VT. Patient vitals are stable today possibility of discharge tomorrow -hyperlipidemia -Extensive nicotine use patient is agreeable to quit smoking at this time -gastroesophageal reflux disease
[2020-02-07] MEDS: ATORVASTATIN 80 MG TAB PO SCH (20:02)
[2020-02-07] MEDS: ZOLPIDEM 5 MG TAB PO PRN (23:03)
[2020-02-08] MEDS: SODIUM CHLORIDE 0.9% 1,000 ML IV SCH (02:31)
[2020-02-08 03:57] VITALS: PULSE 73
--- NOTE | 2020-02-08 08:16 | P.PN ---
Subjective Progress Note Date: 02/08/20 Principal diagnosis: Acute coronary syndrome This is a 60-year-old gentleman with history of smoking presented to the hospital with chest discomfort and was diagnosed with acute inferior ST patient myocardial infarction be he underwent an emergent heart catheterization and was found to have occluded RCA which was opened and stented with a good angiographic results. He was found to have only mild disease involving the left coronary system. The patient was seen today February 072019. He remains asymptomatic from a perivascular standpoint of view. He is on dual antiplatelet therapy along with high intensity statin. The acute renal failure has resolved with improvement in the blood pressure. He is not on any beta florencio or ALIYA inhibitor because of the hypotension. From the cardiovascular standpoint of view, the patient can be discharged home. Objective - Vital Signs Vital signs: Vital Signs Temp 98.2 F 02/08/20 03:53 Pulse 73 02/08/20 03:57 Resp 18 02/08/20 03:57 BP 134/82 02/08/20 03:53 Pulse Ox 99 02/08/20 03:53 Intake & Output 02/07/20 02/08/20 02/08/20 18:59 06:59 18:59 Intake Total 800 Output Total 675 650 Balance 125 -650 Weight 100 kg Intake: IV 800 Sodium Chloride 0.9% 1, 800 000 ml @ 100 mls/hr IV . Q10H [facility] Rx#:[id number] Output: Urine 675 650 Other: Voiding Method Toilet Toilet Urinal # Voids 0 1 1 - Constitutional General appearance: Present: no acute distress - Respiratory Respiratory: bilateral: CTA - Cardiovascular Rhythm: regular Heart sounds: normal: S1, S2 - Labs CBC & Chem 7: 02/07/20 07:39 02/07/20 07:39 Labs: Abnormal Lab Results - Last 24 Hours (Table) 02/07/20 Range/Units 07:39 Chloride 109 H (98-107) mmol/L BUN 22 H (9-20) mg/dL Glucose 144 H (74-99) mg/dL AST 241 H (17-59) U/L ALT 91 H (4-49) U/L Total Protein 5.6 L (6.3-8.2) g/dL Albumin 3.2 L (3.5-5.0) g/dL Assessment and Plan Assessment: Assessment #[address] patient myocardial infarction #2 significant history of smoking #3 hypertension #4 dyslipidemia Plan #1 dual antiplatelet therapy #2 high intensity statin #3 avoid any blood pressure medications #4 avoid any nephrotoxic medications #5 the patient can be discharged home
[2020-02-08] MEDS: CLOPIDOGREL 75 MG TAB PO SCH (08:55)
[2020-02-08] MEDS: ASPIRIN 325 MG TAB PO SCH (08:55)
[2020-02-08 09:08] VITALS: BP 136/90; RESP 16; TEMP 97.8
--- NOTE | 2020-02-08 13:21 | P.DS ---
Providers Date of admission: 02/05/20 10:31 Attending physician: Osorio Jacob Consults: 02/05/20 12:49 Consult Physician Routine Consulting Provider: Cardiology Emanuel Consult Reason/Comments: STEMI Do you want consulting provider notified?: Already Contacted 02/05/20 14:24 Consult Physician Routine Consulting Provider: Rox Castellanos Consult Reason/Comments: Post Interventional patient Do you want consulting provider notified?: Already Contacted Primary care physician: [facility] Hospital Course: 60-year-old male with admitted for inferior wall ST elevation microinfarction. Patient has ejection fraction of around 40-45% secondary to stent myocardium and acute systolic dysfunction patient is not in heart failure exacerbation patient was actually hypotensive which is not unexpected of for inferior wall [place]. Patient is actually receiving IV fluids at this time. Patient is on dual antiplatelet therapy, and dobutamine drip. She is not on beta florencio because of bradycardia for which patient is receiving atropine 02/07/2020 Patient is clinically doing well and remains on IV fluids blood pressure and heart rate are stable at this time. Possibly of discharge tomorrow 02/08/2020 Patient is clinically doing well overall patient is being discharged on United with the therapy and a statin patient is not being discharged on beta florencio because of bradycardia from inferior wall KS patient is not being discharged on lisinopril because of hypotension. Patient had EF of around 45% which is acute the systolic dysfunction without any heart failure exacerbation and expected to improve down the line. PHYSICAL EXAMINATION: GENERAL: The patient is alert and oriented x3, not in any acute distress. Well developed, well nourished. HEENT: Pupils are round and equally reacting to light. EOMI. No scleral icterus. No conjunctival pallor. Normocephalic, atraumatic. No pharyngeal erythema. No thyromegaly. CARDIOVASCULAR: S1 and S2 present. No murmurs, rubs, or gallops. PULMONARY: Chest is clear to auscultation, no wheezing or crackles. ABDOMEN: Soft, nontender, nondistended, normoactive bowel sounds. No palpable organomegaly. MUSCULOSKELETAL: No joint swelling or deformity. EXTREMITIES: No cyanosis, clubbing, or pedal edema. NEUROLOGICAL: Gross neurological examination did not reveal any focal deficits. SKIN: No rashes. -Acute ST elevation myocardial infarction inferior wall KS patient is status post cardiac catheterization and stenting to RCA Hypertension patient was actually hypotensive off hydrochlorothiazide -Acute systolic dysfunction from acute myocardial infarction EF of around 45% -Hyperlipidemia -Nicotine abuse patient will quit smoking -Gastroesophageal reflux disease Plan - Discharge Summary Discharge Rx Participant: No New Discharge Prescriptions: New Aspirin 325 mg PO DAILY #30 tab Atorvastatin [Lipitor] 80 mg PO HS #30 tab Nitroglycerin Sl Tabs [Nitrostat] 0.4 mg SUBLINGUAL Q5M PRN #30 tab PRN Reason: Chest Pain Famotidine [Pepcid] 20 mg PO BID #60 tablet Clopidogrel [Plavix] 75 mg PO DAILY #30 tab Continue Cholecalciferol (Vitamin D3) [Vitamin D3] 2,000 unit PO DAILY Atorvastatin Calcium [Lipitor] 80 mg PO HS Multivitamins, Thera [Multivitamin (formulary)] 1 tab PO DAILY Discontinued Ibuprofen [Motrin] 400 mg PO Q6HR PRN PRN Reason: Pain hydroCHLOROthiazide 12.5 mg PO DAILY lisinopriL 20 mg PO DAILY Omeprazole 20 mg PO DAILY Discharge Medication List Atorvastatin Calcium [Lipitor] 80 mg PO HS 10/18/18 [History] Cholecalciferol (Vitamin D3) [Vitamin D3] 2,000 unit PO DAILY 10/18/18 [History] Multivitamins, Thera [Multivitamin (formulary)] 1 tab PO DAILY 02/05/20 [History] Aspirin 325 mg PO DAILY #30 tab 02/08/20 [Rx] Atorvastatin [Lipitor] 80 mg PO HS #30 tab 02/08/20 [Rx] Clopidogrel [Plavix] 75 mg PO DAILY #30 tab 02/08/20 [Rx] Famotidine [Pepcid] 20 mg PO BID #60 tablet 02/08/20 [Rx] Nitroglycerin Sl Tabs [Nitrostat] 0.4 mg SUBLINGUAL Q5M PRN #30 tab 02/08/20 [Rx] Follow up Appointment(s)/Referral(s): Raghavendra Barnes MD [STAFF PHYSICIAN] - 1 Week [facility],Clinic [Primary Care Provider] - 3 Days Patient Instructions/Handouts: Heart Attack (DC), How to Stop Smoking (DC), Cardiac Rehabilitation (DC), After Radial Heart Catheterization (GEN) Activity/Diet/Wound Care/Special Instructions: Fax a copy of the medicaiton list to [facility] when discharged. [facility] CM at [place] for indigent funds cleared by cardiology Discharge Disposition: HOME SELF-CARE
== END 2020-02-08 12:15 | disposition home or self-care (01) | DRG 247 ==
LOC: CATHCVL 10:20 → 2SICU 10:31 → 3SCARD 02-07 15:07
PROVIDERS: ADMIT Hospitalist; ATTEND Hospitalist
PROC: B2111ZZ Fluoroscopy of Multiple Coronary Arteries using Low Osmolar Contrast (ICD-10-PCS; principal; 2020-02-05 14:10)
PROC: 027034Z Dilation of Coronary Artery, One Artery with Drug-eluting Intraluminal Device, Percutaneous Approach (ICD-10-PCS; principal; 2020-02-05 14:10)
PROC: 4A023N7 Measurement of Cardiac Sampling and Pressure, Left Heart, Percutaneous Approach (ICD-10-PCS; principal; 2020-02-05 14:10)
PROC: 02C03ZZ Extirpation of Matter from Coronary Artery, One Artery, Percutaneous Approach (ICD-10-PCS; principal; 2020-02-05 14:10)
DX: I21.19 ST elevation (STEMI) myocardial infarction involving other coronary artery of inferior wall (principal); E78.5 Hyperlipidemia, unspecified; E78.00 Pure hypercholesterolemia, unspecified; F17.200 Nicotine dependence, unspecified, uncomplicated; I10 Essential (primary) hypertension; I25.10 Atherosclerotic heart disease of native coronary artery without angina pectoris; K21.9 Gastro-esophageal reflux disease without esophagitis; M06.9 Rheumatoid arthritis, unspecified; I25.82 Chronic total occlusion of coronary artery; I95.89 Other hypotension; N14.1 Nephropathy induced by other drugs, medicaments and biological substances; T50.8X5A Adverse effect of diagnostic agents, initial encounter; Z79.899 Other long term (current) drug therapy; Z98.890 Other specified postprocedural states; Z98.1 Arthrodesis status
CPT/HCPCS: 71045; 80048; 80053; 82550; 82553; 83735; 84484; 85025; 85027; 85610; 85730; 93005; 93306; 93308; 93458; 94640; 96374; 99291

== ENCOUNTER → 2020-08-16 | Outpatient (CLI) | payer OTHER ==
--- NOTE | 2020-08-16 16:34 | MR ---
EXAMINATION TYPE: MR cervical spine wo con DATE OF EXAM: 08/16/2020 COMPARISON: None HISTORY: Tingling on RT of face and ear CONTRAST: Performed utilizing 0 mL intravenous Gadavist gadolinium contrast. TECHNIQUE: Multiplanar multiecho imaging on a 3.0 Summer magnet is performed through the cervical spin e. FINDINGS: The craniovertebral junction is normal. Vertebral body alignment is normal. Spinal cord m aintains normal signal through its visualized course. Anterior cervical fusion is present C5-6. A lar ge anterior vertebral body spurs present C4. C7-T1: Minimal endplate changes may has some anterior thecal sac flattening. No cord contact is evid ent. No spinal canal stenosis is present. Uncovertebral joint hypertrophy has mild bilateral foramina l narrowing.. C6-7: Broad-based disc bulge has anterior thecal sac flattening. This may be slightly greater in the right paracentral and right lateral direction. Severe right and moderate left foraminal narrowing is present. No cord contact or spinal canal stenosis is present.. C5-6: No focal disc herniation or significant disc bulge is evident. No spinal canal stenosis is pre sent. There is uncovertebral joint hypertrophy with severe right foraminal narrowing near the orifice . C4-5: There is a central protrusion with moderate anterior thecal sac compression. Cord contact witho ut cord deformity is present. No AP spinal canal stenosis is present. Neural foramen are patent.. C3-4: There is a tiny central protrusion with mild anterior thecal sac compression. No AP spinal driss l stenosis present. Neural foramen are patent.. C2-3: No focal disc herniation or significant disc bulge is evident. No spinal canal stenosis or devora ral foraminal stenosis is present. IMPRESSIONS: 1. Central protrusion C4-5 with moderate thecal sac compression without cord compression. 2. Severe right foraminal narrowing at the opening to the spinal canal on the right at C5-6. 3. Severe right and moderate left foraminal narrowing due to uncovertebral joint hypertrophy C6-7
== END | disposition home or self-care (01) ==
LOC: RADMRIMAIN 14:53
DX: M48.02 Spinal stenosis, cervical region (principal); M50.221 Other cervical disc displacement at C4-C5 level; M89.38 Hypertrophy of bone, other site
CPT/HCPCS: 72141

== ENCOUNTER → 2020-09-15 | Outpatient (CLI) | payer OTHER ==
--- NOTE | 2020-09-15 18:36 | CONS ---
CONSULTATION DATE OF SERVICE: 09/15/2020 This is a 60-year-old gentleman who has been evaluated in the sleep center for possible obstructive sleep apnea-hypopnea syndrome. HISTORY OF PRESENT ILLNESS/SLEEP-WAKE EVALUATION: Patient's usual sleep schedule on weekdays is from 8:30 or 9 p.m. until 5:45 a.m. and on weekends from 10 or 11 p.m. until 6:30 or 7 a.m. Sometimes he has problems with falling asleep. He has a TV set in the bedroom. He sleeps in different positions. He snores and wakes up from sleep 3 times, with one episode of nocturia at night. He grinds his teeth. He has a positive history of restless leg symptoms. In the morning the patient wakes up tired but usually does not take any naps. Haworth Sleepiness Scale is 4. No history of hypnagogic hallucinations, sleep paralysis or cataplexy. PAST MEDICAL HISTORY: Positive for coronary artery disease, status post FL in January of 2020, episodes of tachycardia during sleep, hyperlipidemia. PAST SURGICAL HISTORY: Surgery for nasal septum deviation. MEDICATIONS: 1. 20 mg take 1-1/2 tablet once a day. 2. Metoprolol 25 mg once a day. 3. Aspirin 81 mg once a day. 4. Clopidogrel 75 mg once a day. 5. Atorvastatin 80 mg once a day. 6. Nitroglycerin 0.4 mg under the tongue as needed. 7. Nicotine lozenge as needed. 8. Pantoprazole 40 mg once a day. 9. Multivitamins. SOCIAL HISTORY: Positive for smoking 2 packs a day for 6 years, presently about 10-15 cigarettes a day. REVIEW OF SYSTEMS: Tachycardia during the sleep, snoring, awakenings with nocturia. PHYSICAL EXAMINATION: GENERAL: A pleasant gentleman without distress. VITAL SIGNS: BP 138/80, HR 78, RR 12, height 6 feet 1-1/2 inches, weight 218.4 pounds, temperature 98.5, oxygen saturation at room air 97%. HEENT: PERRLA, EOMI. Evaluation of oropharynx showed tongue protrudes midline. Low position of soft palate. Mallampati III. NECK: Supple. No JVD. Thyroid is not palpable. Neck measures 17 inches in circumference. LUNGS: Clear to percussion and to auscultation. Good air exchange. No wheezing or rhonchi. HEART: S1, S2 regular. No murmurs, gallops or rubs. ABDOMEN: Obese. EXTREMITIES: No clubbing or cyanosis. LIFE SUPPORT TECHNICIAN: Awake, alert, and oriented X3. Cranial nerves 2 to 7 intact. There is no fasciculation or atrophy. noted. No focal deficits observed. IMPRESSION: 1. Snoring, awakenings from sleep with nocturia, low position of soft palate, wide neck at 17 inches in circumference; obstructive sleep apnea-hypopnea syndrome. 2. Coronary artery disease, status post myocardial infarction in January of 2020. 3. Episodes of tachycardia during sleep. 4. Hyperlipidemia. 5. Status post surgical treatment of nasal septum deviation. PLAN: 1. Polysomnography for evaluation of patient's breathing during sleep. 2. CPAP/BiPAP titration if sleep study confirms obstructive sleep apnea-hypopnea syndrome. 3. Preferable position during sleep on the side. 4. No driving if patient feels any sleepiness. 5. I will see patient for follow up visit to explain results of testing and following plan. Thank you very much for referring this patient for consultation. Sincerely, Alvaro De La Rosa MD, PhD, FAASM Diplomat of [employer] [employer] Instructor of [facility] [place] MMODL / ANABELLEN: [id number] /
== END ==
LOC: SLEEP 15:23
PROVIDERS: ATTEND Internal Medicine
DX: G47.33 Obstructive sleep apnea (adult) (pediatric) (principal); I25.10 Atherosclerotic heart disease of native coronary artery without angina pectoris; I25.2 Old myocardial infarction; R00.0 Tachycardia, unspecified; F17.210 Nicotine dependence, cigarettes, uncomplicated; E78.5 Hyperlipidemia, unspecified; Z98.890 Other specified postprocedural states; Z79.82 Long term (current) use of aspirin; Z79.899 Other long term (current) drug therapy
CPT/HCPCS: 99211

== ENCOUNTER 2021-08-16 05:51 | Day surgery (SDC) | payer OTHER ==
[2021-08-12 14:52] VITALS: BMI 28.8
[2021-08-16] MEDS ORDERED: LACTATED RINGERS 1,000 ML IV SCH (06:01)
[2021-08-16] MEDS ORDERED: SODIUM CHLORIDE 0.9% 1,000 ML IV SCH (06:01)
[2021-08-16] MEDS ORDERED: SODIUM CHLORIDE 0.9% 500 ML 500 ML IV ONE (06:21)
[2021-08-16 06:52] VITALS: BP 171/95; PULSE 62; RESP 16; TEMP 97.7
== END 2021-08-16 07:26 | disposition home or self-care (01) ==
LOC: CATHCVL 05:51
PROVIDERS: ATTEND Internal Medicine Interventional Cardiology
DX: I48.0 Paroxysmal atrial fibrillation (principal); Z53.9 Procedure and treatment not carried out, unspecified reason; I25.10 Atherosclerotic heart disease of native coronary artery without angina pectoris; E78.5 Hyperlipidemia, unspecified; I08.1 Rheumatic disorders of both mitral and tricuspid valves; Z79.02 Long term (current) use of antithrombotics/antiplatelets; Z79.899 Other long term (current) drug therapy; Z79.82 Long term (current) use of aspirin; Z20.822 Contact with and (suspected) exposure to COVID-19
CPT/HCPCS: 87635

== ENCOUNTER → 2021-09-30 | Outpatient (CLI) | payer OTHER ==
--- NOTE | 2021-09-30 10:21 | CTL ---
EXAMINATION TYPE: CT Low Dose Lung DATE OF EXAM ORDERED: 09/30/2021 HISTORY: Tobacco use. Lung cancer screening CT DLP: 129.[address] CTDI: 3.50 mGy Automated exposure control for dose reduction was used. SCREENING VISIT: Baseline COMPARISON: None available TECHNIQUE: Low dose computed tomography scan was performed through the chest at 1 mm thick sections a nd reconstructed images in multiple planes at 1 mm and [address] DIAGNOSTIC QUALITY: Satisfactory FINDINGS: LUNG NODULES: Right lower lobe solid [address] image 204. Right upper lobe solid pleural-based [address] image 146. Right oblique fissure solid 8mm nodule with slightly spiculated margin on CT image #133. Right transverse fissure solid [address] image 144. LUNGS: COPD: Severity: None Fibrosis: Severity: None Lymph nodes: No pathologically enlarged nodes Other findings: None RIGHT PLEURAL SPACE: Effusion: None Calcification: None Thickening: None Pneumothorax: None LEFT PLEURAL SPACE: Effusion: None Calcification: None Thickening: None Pneumothorax: None HEART: Heart Size: Slightly enlarged Coronary Calcification: Moderate to marked calcifications Pericardial Effusion: None OTHER FINDINGS: Upper abdomen: None Bony thorax: Old healed fracture of the right clavicle. Supraclavicular region: None Other: None IMPRESSION: Scattered right lung nodules measuring up to 8 mm as described above, for follow-up CT sc an in [address] LUNG RAD AND CT CHEST RECOMMENDATION: Lung-Rad 4A Suspicious: Follow-up 3 month LDCT or PET/CT may be used when there is a > 8 mm solid component. S Modifier (other clinically significant findings): None
== END | disposition home or self-care (01) ==
LOC: RADCTMAIN 08:17
DX: Z12.2 Encounter for screening for malignant neoplasm of respiratory organs (principal); R91.1 Solitary pulmonary nodule; Z87.891 Personal history of nicotine dependence
CPT/HCPCS: 71271

== ENCOUNTER → 2022-01-26 | Outpatient (CLI) | payer OTHER ==
--- NOTE | 2022-01-26 08:00 | CT ---
EXAMINATION TYPE: CT chest wo con DATE OF EXAM: 01/26/2022 COMPARISON: 09/30/2021 HISTORY: lung nodule f/u CT DLP: 502.1 mGycm, Automated exposure control for dose reduction was used. CONTRAST: Performed injected with 0 mL of Isovue 300. TECHNIQUE: Axial images were obtained at 5 mm thick sections. Reconstructed images are reviewed on [employer] computer in the coronal plane. FINDINGS: Portion of the thyroid visualized is normal. There is a 0.7 cm nodule in the posterior right midlung. This was present previously and appears stab le. Series 4 image 30. A punctate density along the minor fissure remains present stable, series 4 im age 36. Elongated density within the right mid lung measures 1.0 cm which is longer than 0.8 cm but is narrow er than the comparison. A 0.6 cm peripheral nodule in the right lateral lung is stable. Series 4 image 44. There is some pneumonitis change within the lingula. Correlate for atelectasis. No enlarged mediastinal or hilar adenopathy is evident. The ascending aorta diameter at the level o f the main pulmonary artery is 3.4 cm. The main pulmonary artery diameter at the bifurcation is 2.4 cm. Coronary artery calcification is present. Limited CT sections are obtained through the upper abdomen. Abdomen is essentially unremarkable. IMPRESSIONS: 1. Essentially stable appearing lung nodules. Follow-up CT chest in 3 months.
== END | disposition home or self-care (01) ==
LOC: RADCTMAIN 06:46
DX: R91.8 Other nonspecific abnormal finding of lung field (principal)
CPT/HCPCS: 71250

== ENCOUNTER → 2022-04-26 | Outpatient (CLI) | payer OTHER ==
--- NOTE | 2022-04-26 15:03 | CT ---
EXAMINATION TYPE: CT chest wo con DATE OF EXAM: 04/26/2022 COMPARISON: Chest CT January 26, 2022 and older CTs. HISTORY: Abnormal lung findings. Abnormal CT. CT DLP: 468 mGycm. Automated Exposure Control for Dose Reduction was Utilized. TECHNIQUE: CT scan of the thorax is performed without IV contrast. FINDINGS: LUNGS: Stable 7 mm posterior right mid lung nodule axial image 27 localizes to the fissure on coronal and sagittal images consistent with benign intrapulmonary lymph node. Stable 7 x 4 mm elongated nodu le axial image 34 in the anterior right midlung localizes to the fissure consistent with benign intra pulmonary lymph node. Stable 6 mm peripheral right lower lobe nodule axial image 40. No new or enlarg ing greater than 5 mm pulmonary nodules. No pleural effusion or pneumothorax is seen bilaterally. Th e tracheobronchial tree is patent. No new consolidation. MEDIASTINUM: Lack of IV contrast is noted to limit evaluation for mediastinal and especially hilar ad enopathy. There are no new greater than 1 cm mediastinal lymph nodes. No cardiomegaly or pericardia l effusion is seen. Moderate to severe three-vessel coronary artery calcification and/or stents are r edemonstrated. OTHER: [id number] multilevel spurring in the thoracic spine. IMPRESSION: Stable scattered small nodules favored benign. No new or enlarging greater than 5 mm pulm onary nodules.
== END | disposition home or self-care (01) ==
LOC: RADCTMAIN 13:21
DX: R91.8 Other nonspecific abnormal finding of lung field (principal)
CPT/HCPCS: 71250

== ENCOUNTER → 2023-01-26 | Outpatient (CLI) | payer OTHER ==
--- NOTE | 2023-01-26 11:17 | CTL ---
EXAMINATION TYPE: CT Low Dose Lung DATE OF EXAM ORDERED: 01/26/2023 HISTORY: 63-year-old male Z87.891, personal history of tobacco use. Current smoker with 60 pack-year history. Lung cancer screening CT DLP: 128.[address] CTDI: 3.6 mGy Automated exposure control for dose reduction was used. SCREENING VISIT: Annual follow-up COMPARISON: 09/30/2021 TECHNIQUE: Low dose computed tomography scan was performed through the chest with coronal and sagitta l reconstructions. CT DIAGNOSTIC QUALITY: Satisfactory FINDINGS: The heart is normal size without pericardial effusion. Extensive three-vessel coronary artery calcifi cations are present. Very direct takeoff of the left vertebral artery directly from the aortic arch. Aorta normal caliber. No thoracic lymph adenopathy by CT size criteria. Mild diffuse bronchial wall thickening. No consolidation or pleural effusion. 7 mm posterior right mid lung pulmonary nodule, axial image 130 is unchanged. 7 mm anterior right midlung pulmonary nodule, axial image 160 is unchanged. 7 mm lateral right lower lobe pulmonary nodule, axial image 196 is unchanged. A couple additional smaller pulmonary nodules on the right remain unchanged. Visualized upper abdomen shows no gross abnormality. Bones: Mild anterior endplate spondylosis midthoracic spine. IMPRESSION: 1. LungRADS 2, benign. A few scattered 7 mm and smaller pulmonary nodules remain unchanged. 2. Recommend smoking cessation. CT LUNG RAD AND CT CHEST RECOMMENDATION: Lung-Rad 2 Benign Appearance or Behavior: Continue annual sc reening with LDCT in 12 months. S Modifier (other clinically significant findings): None
== END | disposition home or self-care (01) ==
LOC: RADCTMAIN 08:25
PROVIDERS: ATTEND Family Medicine
DX: Z12.2 Encounter for screening for malignant neoplasm of respiratory organs (principal); R91.8 Other nonspecific abnormal finding of lung field; F17.210 Nicotine dependence, cigarettes, uncomplicated
CPT/HCPCS: 71271

== ENCOUNTER 2023-10-06 16:03 | Emergency (ER) | payer OTHER ==
--- NOTE | 2023-10-06 16:26 | ED ---
Weakness HPI - General Chief complaint: Weakness Stated complaint: Pain in legs, flushed, hot flashes Time Seen by Provider: 10/06/23 16:16 Source: patient, RN notes reviewed, old records reviewed Mode of arrival: ambulatory Limitations: no limitations - History of Present Illness Initial comments: This is a 63-year-old male to the ER for evaluation of some complaints today of lightheadedness dizziness weakness legs and arms feeling flushed, patient has history of atrial fibrillation and states this feels like prior episode of atrial fibrillation. Although does admit that he feels improved here in the emergency heart. No recent travel history or sick contacts. Patient had an elevated heart rate at home for a while but that is resolved. He does have history of heart disease with prior heart attack and stent placed but nothing recent. This was around 3 years ago with A-fib being in the meanwhile. No recent medication changes no other complaints MD Complaint: generalized weakness, numbness, tingling -: days(s) Location: generalized Severity: mild Severity scale (1-10): 3 Consistency: intermittent Improves with: none Context: history of similar Associated Symptoms: denies other symptoms - Related Data Home Medications Medication Instructions Recorded Confirmed Atorvastatin Calcium [Lipitor] 80 mg PO HS 10/18/18 08/16/21 Cholecalciferol (Vitamin D3) 2,000 unit PO DAILY 10/18/18 08/16/21 [Vitamin D3] Multivitamins, Thera [Multivitamin 1 tab PO DAILY 02/05/20 08/16/21 (formulary)] Aspirin [Adult Low Dose Aspirin EC] 81 mg PO DAILY 08/12/21 08/16/21 Melatonin [Melatonin ER] 10 mg PO HS 08/12/21 08/16/21 Metoprolol Succinate [Toprol XL] 50 mg PO DAILY 08/12/21 08/16/21 Pantoprazole [Protonix] 40 mg PO DAILY 08/12/21 08/16/21 lisinopriL [Zestril] 20 mg PO DAILY 08/12/21 08/16/21 Clopidogrel [Plavix] 75 mg PO BID 08/16/21 08/16/21 Previous Rx's Medication Instructions Recorded Atorvastatin [Lipitor] 80 mg PO HS #30 tab 02/08/20 Nitroglycerin Sl Tabs [Nitrostat] 0.4 mg SUBLINGUAL Q5M PRN #30 tab 02/08/20 Allergies Allergy/AdvReac Type Severity Reaction Status Date / Time No Known Allergies Allergy Verified 10/06/23 16:13 Review of Systems ROS Statement: Those systems with pertinent positive or pertinent negative responses have been documented in the HPI. ROS Other: All systems not noted in ROS Statement are negative. Past Medical History Past Medical History: Atrial Fibrillation, GERD/Reflux, Hyperlipidemia, Hypertension, Myocardial Infarction (HI), Rheumatoid Arthritis (RA) Additional Past Medical History / Comment(s): SEE DR. TERESA'S H & P Last Myocardial Infarction Date:: 02/04/2021 History of Any Multi-Drug Resistant Organisms: None Reported Past Surgical History: Back Surgery, Heart Catheterization With Stent, Hernia Repair, Orthopedic Surgery Additional Past Surgical History / Comment(s): NASOSEPTO RECONSTRUCTION , ELBOW RIGHT NERVE IMPAIRMENT FIXED , UMBILICAL HERNIA , FUSION C5 AND 6, COLONOSCOPY Past Anesthesia/Blood Transfusion Reactions: No Reported Reaction Date of Last Stent Placement:: 02/04/21 Past Psychological History: No Psychological Hx Reported Smoking Status: Current every day smoker Past Alcohol Use History: Occasional Past Drug Use History: None Reported - Past Family History Daughter(s) Family Medical History: No Reported History General Exam Limitations: no limitations General appearance: alert, in no apparent distress Head exam: Present: atraumatic, normocephalic, normal inspection Eye exam: Present: normal appearance, PERRL, EOMI. Absent: scleral icterus, conjunctival injection, periorbital swelling ENT exam: Present: normal exam, mucous membranes moist Neck exam: Present: normal inspection. Absent: tenderness, meningismus, lymphadenopathy Respiratory exam: Present: normal lung sounds bilaterally. Absent: respiratory distress, wheezes, rales, rhonchi, stridor Cardiovascular Exam: Present: regular rate, normal rhythm, normal heart sounds. Absent: systolic murmur, diastolic murmur, rubs, gallop, clicks GI/Abdominal exam: Present: soft, normal bowel sounds. Absent: distended, tenderness, guarding, rebound, rigid Extremities exam: Present: normal inspection, full ROM, normal capillary refill. Absent: tenderness, pedal edema, joint swelling, calf tenderness Back exam: Present: normal inspection Neurological exam: Present: alert, oriented X3, CN II-XII intact Psychiatric exam: Present: normal affect, normal mood Skin exam: Present: warm, dry, intact, normal color. Absent: rash Course Vital Signs 10/06/23 10/06/23 16:09 18:48 Temperature 97.3 F L 98.0 F Pulse Rate 116 H 74 Respiratory 20 18 Rate Blood Pressure 150/98 142/78 O2 Sat by Pulse 98 99 Oximetry - Reevaluation(s) Reevaluation #1: 10/06/23 17:31 Medical records reviewed Reevaluation #2: 10/06/23 17:49 Patient symptoms improving Reevaluation #3: Patient informed of results and questions were answered Reevaluation #4: Was pt. sent in by a medical professional or institution (, PA, COLLECTIONS ASSISTANT, urgent care, hospital, or skilled nursing...) When possible be specific @ -no Did you speak to anyone other than the patient for history (EMS, parent, family, police, friend...)? What history was obtained from this source @ -no Did you review nursing and triage notes (agree or disagree)? Why? @ -agree Are old charts reviewed (outside hosp., previous admission, EMS record, old EKG, old radiological studies, urgent care reports/EKG's, skilled nursing records)? Report findings @ -yes Differential Diagnosis (chest pain, altered mental status, abdominal pain women, abdominal pain men, vaginal bleeding, weakness, fever, dyspnea, syncope, headache, dizziness, GI bleed, back pain, seizure, CVA, palpatations, mental health, musculoskeletal)? @ -prior EKG interpreted by me (3pts min.). @ -yes X-rays interpreted by me (1pt min.). @ -no CT interpreted by me (1pt min.). @ -no U/S interpreted by me (1pt. min.). @ -no What testing was considered but not performed or refused? (CT, X-rays, U/S, labs)? Why? @ -none What meds were considered but not given or refused? Why? @ -none Did you discuss the management of the patient with other professionals (professionals i.e. , VERNELL, COLLECTIONS ASSISTANT, lab, RT, psych nurse, social security specialist, health science specialist, teacher, [employer] officer, manager case)? Give summary @ -no Was smoking cessation discussed for >3mins.? @ -no Was critical care preformed (if so, how long)? @ -no Were there social determinants of health that impacted care today? How? (Homelessness, low income, unemployed, alcoholism, drug addiction, transportation, low edu. Level, literacy, decrease access to med. care, penitentiary, rehab)? @ -none Was there de-escalation of care discussed even if they declined (Discuss DNR or withdrawal of care, Hospice)? DNR status @ -no What co-morbidities impacted this encounter? (DM, HTN, Smoking, COPD, CAD, C ancer, CVA, ARF, Chemo, Hep., AIDS, mental health diagnosis, sleep apnea, morbid obesity)? @ -none Was patient admitted / discharged? Hospital course, mention meds given and route, prescriptions, significant lab abnormalities, going to OR and other pertinent info. @ - 63 male to ER for evaluation of dizziness. Patient presents today for evaluation of dizziness here in the ER and does not want any further testing aside from that. Patient complains of some generalized weakness and a cough but symptoms are resolved and patient feels good for discharge home Discharge Undiagnosed new problem with uncertain prognosis? @ -no Drug Therapy requiring intensive monitoring for toxicity (Heparin, Nitro, Insulin, Cardizem)? @ -no Were any procedures done? @ -no Diagnosis/symptom? @ -Weakness Acute, or Chronic, or Acute on Chronic? @ -Acute Uncomplicated (without systemic symptoms) or Complicated (systemic symptoms)? @ -Complicated Side effects of treatment? @ -no Exacerbation, Progression, or Severe Exacerbation? @ -exacerbation Poses a threat to life or bodily function? How? (Chest pain, USA, HI, pneumonia, PE, COPD, DKA, ARF, appy, cholecystitis, CVA, Diverticulitis, Homicidal, Blank cidal, threat to staff... and all critical care pts) @ -yes Reevaluation #5: Differential Dizziness: Benign paroxysmal positional Vertigo, Menieres disease, otitis media, acoustic neuroma, vertebrobasilar insufficiency, cerebellar stroke, encephalitis, hypovolemic, arrhythmia, coronary artery syndrome, anemia, this is not meant to be an all-inclusive list EKG Findings - EKG Comments: EKG Findings:: EKG is sinus 80 NV 136 QRS 110 QTc 406 - EKG Results: EKG: interpreted by ERMD Medical Decision Making - Medical Decision Making 63 male to ER for evaluation of dizziness. Patient presents today for evaluatio n of dizziness here in the ER and does not want any further testing aside from that. Patient complains of some generalized weakness and a cough but symptoms are resolved and patient feels good for discharge home - Lab Data Result diagrams: 10/06/23 16:49 10/06/23 16:49 Lab Results 10/06/23 10/06/23 10/06/23 Range/Units 16:49 16:49 16:49 WBC 8.2 (3.8-10.6) k/uL RBC 5.71 (4.30-5.90) m/uL Hgb 17.8 H (13.0-17.5) gm/dL Hct 54.3 H (39.0-53.0) % MCV 95.1 (80.0-100.0) fL MCH 31.2 (25.0-35.0) pg MCHC 32.8 (31.0-37.0) g/dL RDW 12.7 (11.5-15.5) % Plt Count 201 (150-450) k/uL MPV 7.8 Neutrophils % 71 % Lymphocytes % 16 % Monocytes % 7 % Eosinophils % 5 % Basophils % 1 % Neutrophils # 5.8 (1.3-7.7) k/uL Lymphocytes # 1.3 (1.0-4.8) k/uL Monocytes # 0.5 (0-1.0) k/uL Eosinophils # 0.4 (0-0.7) k/uL Basophils # 0.1 (0-0.2) k/uL Sodium 139 (137-145) mmol/L Potassium 4.2 (3.5-5.1) mmol/L Chloride 106 (98-107) mmol/L Carbon Dioxide 25 (22-30) mmol/L Anion Gap 8 mmol/L BUN 21 H (9-20) mg/dL Creatinine 0.95 (0.66-1.25) mg/dL Est GFR (CKD-EPI)AfAm >90 (>60 ml/min/1.73 sqM) Est GFR (CKD-EPI)NonAf 85 (>60 ml/min/1.73 sqM) Glucose 144 H (74-99) mg/dL Plasma Lactic Acid Navjot (0.7-2.0) mmol/L Calcium 9.7 (8.4-10.2) mg/dL Phosphorus 3.4 (2.5-4.5) mg/dL Magnesium 1.8 (1.6-2.3) mg/dL Total Bilirubin 0.4 (0.2-1.3) mg/dL AST 32 (17-59) U/L ALT 49 (4-49) U/L Alkaline Phosphatase 55 (38-126) U/L Troponin I <0.012 (0.000-0.034) ng/mL Total Protein 7.0 (6.3-8.2) g/dL Albumin 4.2 (3.5-5.0) g/dL Influenza Type A (PCR) (Not Detectd) Influenza Type B (PCR) (Not Detectd) RSV (PCR) (Not Detectd) SARS-CoV-2 (PCR) (Not Detectd) 10/06/23 10/06/23 Range/Units 16:56 16:56 WBC (3.8-10.6) k/uL RBC (4.30-5.90) m/uL Hgb (13.0-17.5) gm/dL Hct (39.0-53.0) % MCV (80.0-100.0) fL MCH (25.0-35.0) pg MCHC (31.0-37.0) g/dL RDW (11.5-15.5) % Plt Count (150-450) k/uL MPV Neutrophils % % Lymphocytes % % Monocytes % % Eosinophils % % Basophils % % Neutrophils # (1.3-7.7) k/uL Lymphocytes # (1.0-4.8) k/uL Monocytes # (0-1.0) k/uL Eosinophils # (0-0.7) k/uL Basophils # (0-0.2) k/uL Sodium (137-145) mmol/L Potassium (3.5-5.1) mmol/L Chloride (98-107) mmol/L Carbon Dioxide (22-30) mmol/L Anion Gap mmol/L BUN (9-20) mg/dL Creatinine (0.66-1.25) mg/dL Est GFR (CKD-EPI)AfAm (>60 ml/min/1.73 sqM) Est GFR (CKD-EPI)NonAf (>60 ml/min/1.73 sqM) Glucose (74-99) mg/dL Plasma Lactic Acid Navjot 1.5 (0.7-2.0) mmol/L Calcium (8.4-10.2) mg/dL Phosphorus (2.5-4.5) mg/dL Magnesium (1.6-2.3) mg/dL Total Bilirubin (0.2-1.3) mg/dL AST (17-59) U/L ALT (4-49) U/L Alkaline Phosphatase (38-126) U/L Troponin I (0.000-0.034) ng/mL Total Protein (6.3-8.2) g/dL Albumin (3.5-5.0) g/dL Influenza Type A (PCR) Not Detected (Not Detectd) Influenza Type B (PCR) Not Detected (Not Detectd) RSV (PCR) Not Detected (Not Detectd) SARS-CoV-2 (PCR) Not Detected (Not Detectd) - EKG Data -: EKG Interpreted by Me Disposition Clinical Impression: Dizziness Disposition: HOME SELF-CARE Condition: Good Instructions (If sedation given, give patient instructions): Dizziness (ED) Is patient prescribed a controlled substance at d/c from ED?: No Referrals: [facility],Clinic [Primary Care Provider] - 1-2 days Time of Disposition: 18:40
[2023-10-06] MEDS: SODIUM CHLORIDE 0.9% 1,000 ML IV STA (16:49)
[2023-10-06] MEDS: ONDANSETRON 4 MG/2 ML VIAL IVP STA (16:50)
[2023-10-06] MEDS: KETOROLAC 15 MG/ML 1 ML VIAL IVP STA (16:50)
[2023-10-06 17:25] LABS: ALT 49 U/L (4-49); AST 32 U/L (17-59); African American GFR (CKD) >90 (>60 ml/min/1.73 sqM); Albumin 4.2 g/dL (3.5-5.0); Alkaline Phosphatase 55 U/L (38-126); Anion Gap 8 mmol/L; Blood Urea Nitrogen 21 mg/dL (9-20); Calcium 9.7 mg/dL (8.4-10.2); Carbon Dioxide 25 mmol/L (22-30); Chloride 106 mmol/L (98-107); Glucose 144 mg/dL (74-99); Magnesium 1.8 mg/dL (1.6-2.3); Non-African American GFR(CKD) 85 (>60 ml/min/1.73 sqM); Phosphorus 3.4 mg/dL (2.5-4.5); Potassium 4.2 mmol/L (3.5-5.1); Sodium 139 mmol/L (137-145); Total Bilirubin 0.4 mg/dL (0.2-1.3)
[2023-10-06 17:29] LABS: Basophils # (A) 0.1 k/uL (0-0.2); Basophils % (A) 1 %; Eosinophils # (A) 0.4 k/uL (0-0.7); Eosinophils % (A) 5 %; HCT 54.3 % (39.0-53.0); HGB 17.8 gm/dL (13.0-17.5); Lymphocytes # (A) 1.3 k/uL (1.0-4.8); Lymphocytes % (A) 16 %; MCH 31.2 pg (25.0-35.0); MCHC 32.8 g/dL (31.0-37.0); MCV 95.1 fL (80.0-100.0); Mean Platelet Volume 7.8; Monocytes # (A) 0.5 k/uL (0-1.0); Monocytes % (A) 7 %; Neutrophils # (A) 5.8 k/uL (1.3-7.7); Neutrophils % (A) 71 %; Platelet Count 201 k/uL (150-450); RBC 5.71 m/uL (4.30-5.90); RDW 12.7 % (11.5-15.5); WBC 8.2 k/uL (3.8-10.6)
[2023-10-06 18:51] VITALS: BP 142/78; PULSE 74; RESP 18; TEMP 98
== END 2023-10-06 18:48 | disposition home or self-care (01) ==
LOC: EC 16:03
DX: R42 Dizziness and giddiness (principal); F17.200 Nicotine dependence, unspecified, uncomplicated; Z11.52 Encounter for screening for COVID-19
CPT/HCPCS: 36415; 93005; 80053; 83605; 83735; 84100; 84484; 85025; 87636; 99285; 96374; 96361 ×2; J1885

== ENCOUNTER → 2023-10-26 | Outpatient (CLI) | payer OTHER ==
--- NOTE | 2023-10-26 18:41 | MR ---
EXAMINATION TYPE: MR hip LT wo con DATE OF EXAM: 10/26/2023 COMPARISON: Radiograph 10/05/2023 HISTORY: 63-year-old male M25.552 PAIN IN LEFT HIP TECHNIQUE: Multiplanar, multisequence images of the left hip were obtained without IV contrast. FINDINGS: There is moderate degenerative change of the left hip with a large superior labral tear extending elva rly 180 degrees around. Large multilocular para labral cyst along the superior aspect of the hip join t measuring 2.6 x 3.1 x 1.0 cm. There is [id number] degenerative change of the right hip. Suggestion of a tear along the anteri or superior quadrant with suspected bilocular or labral cyst measuring 2.6 x 0.6 cm. Anterior femoral head neck junction chronic deformities likely contributing to the underlying OA. Mild joint effusion on the left. No hip fracture or AVN. The sacrum and SI joints are intact. There is a 1.3 cm oval focus of calcification at the greater trochanter with mild surrounding edema. The rectus femoris origin is intact. Small intrasubstance tears at the left hamstrings origin. Iliops oas insertions are intact. The prostate gland is enlarged measuring 6.4 cm wide. Within the inferior left peripheral zone, there are 2 foci of diminished T2 weighted signal measuring 1.0 cm and 0.8 cm, axial image 17. IMPRESSION: 1. Moderate left hip OA with a large tear of the superior half of the left acetabular labrum and an a ssociated sizable 3.1 x 2.6 x 1.0 cm multilocular paralabral cyst. 2. [id number] right hip OA with a smaller acetabular labral tear here involving the anterior moya perior quadrant. Associated bilocular paralabral cyst measuring 2.6 x 0.6 cm. 3. 1.3 cm oval focus of calcification at the left greater trochanter with mild surrounding edema. Pos sible calcific tendinitis of the left gluteal insertion. 4. Small intrasubstance tears of the left hamstrings origin. 5. Prostatomegaly at 6.4 cm wide. There are 2 nodular areas in the left peripheral zone measuring 10 mm and 8 mm. Correlate with PSA values and ultrasound to exclude small foci of prostate cancer. 6. No evidence for hip fracture or AVN.
== END | disposition home or self-care (01) ==
LOC: RADMRIMAIN 10:28
PROVIDERS: ATTEND Orthopaedic Surgery
DX: M16.0 Bilateral primary osteoarthritis of hip (principal); R60.9 Edema, unspecified; N40.0 Benign prostatic hyperplasia without lower urinary tract symptoms

== ENCOUNTER 2024-05-20 09:59 | Emergency (ER) | payer OTHER ==
--- NOTE | 2024-05-20 10:27 | ED ---
General Adult HPI - General Chief complaint: Nausea/Vomiting/Diarrhea Stated complaint: abd pain,tachy Time Seen by Provider: 05/20/24 10:13 Source: patient, RN notes reviewed Mode of arrival: ambulatory Limitations: no limitations - History of Present Illness Initial comments: Patient is a 64-year-old male presenting to the emergency department with co ncern for tachycardia. Patient has history of A-fib and does monitor his heart rate. Patient was told by his monitor atrial tachycardia with rates as high as 120. Patient has had some diarrhea over the past couple of days, multiple episodes with small amounts. Fluids seem to make diarrhea worse. Patient has had some lower mid abdominal discomfort with diarrhea, none at this time. - Related Data Home Medications Medication Instructions Recorded Confirmed Atorvastatin Calcium [Lipitor] 80 mg PO HS 10/18/18 08/16/21 Cholecalciferol (Vitamin D3) 2,000 unit PO DAILY 10/18/18 08/16/21 [Vitamin D3] Multivitamins, Thera [Multivitamin 1 tab PO DAILY 02/05/20 08/16/21 (formulary)] Aspirin [Adult Low Dose Aspirin EC] 81 mg PO DAILY 08/12/21 08/16/21 Melatonin [Melatonin Tr] 10 mg PO HS 08/12/21 08/16/21 Metoprolol Succinate [Toprol XL] 50 mg PO DAILY 08/12/21 08/16/21 Pantoprazole [Protonix] 40 mg PO DAILY 08/12/21 08/16/21 lisinopriL [Zestril] 20 mg PO DAILY 08/12/21 08/16/21 Clopidogrel [Plavix] 75 mg PO BID 08/16/21 08/16/21 Previous Rx's Medication Instructions Recorded Atorvastatin [Lipitor] 80 mg PO HS #30 tab 02/08/20 Nitroglycerin Sl Tabs [Nitrostat] 0.4 mg SUBLINGUAL Q5M PRN #30 tab 02/08/20 Dicyclomine [Bentyl] 20 mg PO QID PRN #15 tablet 05/20/24 Allergies Allergy/AdvReac Type Severity Reaction Status Date / Time No Known Allergies Allergy Verified 05/20/24 10:05 Review of Systems ROS Statement: Those systems with pertinent positive or pertinent negative responses have been documented in the HPI. ROS Other: All systems not noted in ROS Statement are negative. Constitutional: Denies: fever Eyes: Denies: eye pain ENT: Denies: ear pain Respiratory: Denies: cough, dyspnea Cardiovascular: Reports: palpitations. Denies: chest pain Gastrointestinal: Reports: as per HPI, abdominal pain, diarrhea Past Medical History Past Medical History: Atrial Fibrillation, GERD/Reflux, Hyperlipidemia, Hypertension, Myocardial Infarction (AK), Rheumatoid Arthritis (RA) Additional Past Medical History / Comment(s): SEE DR. TERESA[facility] H & P Last Myocardial Infarction Date:: 02/04/2021 History of Any Multi-Drug Resistant Organisms: None Reported Past Surgical History: Back Surgery, Heart Catheterization With Stent, Hernia Repair, Orthopedic Surgery Additional Past Surgical History / Comment(s): NASOSEPTO RECONSTRUCTION , ELBOW RIGHT NERVE IMPAIRMENT FIXED , UMBILICAL HERNIA , FUSION C5 AND 6, COLONOSCOPY Past Anesthesia/Blood Transfusion Reactions: No Reported Reaction Date of Last Stent Placement:: 02/04/21 Past Psychological History: No Psychological Hx Reported Smoking Status: Current every day smoker Past Alcohol Use History: Occasional Past Drug Use History: None Reported - Past Family History Daughter(s) Family Medical History: No Reported History General Exam Limitations: no limitations General appearance: alert, in no apparent distress Head exam: Present: normocephalic Eye exam: Present: normal appearance Neck exam: Present: normal inspection Respiratory exam: Present: normal lung sounds bilaterally Cardiovascular Exam: Present: regular rate, normal rhythm, normal heart sounds Expanded Peripheral pulses: 2+: Dorsalis Pedis (R), Dorsalis Pedis (L) GI/Abdominal exam: Present: soft, tenderness (Mild epigastric tenderness to palpation), normal bowel sounds. Absent: distended, guarding, rebound, rigid, pulsatile mass Extremities exam: Present: normal inspection Neurological exam: Present: alert Psychiatric exam: Present: normal affect, normal mood Skin exam: Present: normal color Course Vital Signs 05/20/24 05/20/24 05/20/24 10:05 10:24 11:20 Temperature 97.2 F L 98.5 F Pulse Rate 89 83 76 Respiratory 20 17 18 Rate Blood Pressure 126/72 117/67 102/72 O2 Sat by Pulse 96 96 96 Oximetry EKG Findings - EKG Results: EKG: interpreted by ERMD (Bundle branch block. Inferior Q waves.), sinus rhythm, normal axis, normal ST/T Medical Decision Making - Medical Decision Making Was pt. sent in by a medical professional or institution ([facility]NE[facility] Goins, CONSTRUCTION SKILLS TEACHER, urgent care, hospital, or usp...) When possible be specific @ -No Did you speak to anyone other than the patient for history (EMS, parent, family, police, friend...)? What history was obtained from this source @ - is present helps provide additional history including patient's symptoms and heart rate Did you review nursing and triage notes (agree or disagree)? Why? @ -I reviewed and agree with nursing and triage notes Were old charts reviewed (outside hosp., previous admission, EMS record, old EKG, old radiological studies, urgent care reports/EKG's, usp records)? Report findings @ -No old charts were reviewed Differential Diagnosis (chest pain, altered mental status, abdominal pain women, abdominal pain men, vaginal bleeding, weakness, fever, dyspnea, syncope, headache, dizziness, GI bleed, back pain, seizure, CVA, palpatations, mental health, musculoskeletal)? @ -Differential Abdominal Pain Men: Appendicitis, cholecystitis, diverticulosis, ischemic bowel, pancreatitis, hepatitis, UTI, gastroenteritis, AAA, incarcerated hernia, bowel obstruction, constipation, inflammatory bowel, hepatitis, peptic ulcer disease, splenic infarction, perforated viscus, testicular torsion, this is not meant to be an all-inclusive list EKG interpreted by me (3pts min.). @ -As above X-rays interpreted by me (1pt min.). @ -Abdominal x-ray does not reveal acute abnormality CT interpreted by me (1pt min.). @ -None done U/S interpreted by me (1pt. min.). @ -None done What testing was considered but not performed or refused? (CT, X-rays, U/S, labs)? Why? @ -None What meds were considered but not given or refused? Why? @ -None Did you discuss the management of the patient with other professionals (diandra matias iVERNELL Church, CONSTRUCTION SKILLS TEACHER, lab, RT, psych nurse, social worker health services, packaging assembler, teacher, supply officer, rehabilitation case coordinator)? Give summary @ -No Was smoking cessation discussed for >3mins.? @ -No Was critical care preformed (if so, how long)? @ -No Were there social determinants of health that impacted care today? How? (Homelessness, low income, unemployed, alcoholism, drug addiction, transportation, low edu. Level, literacy, decrease access to med. care, residential, rehab)? @ -No Was there de-escalation of care discussed even if they declined (Discuss DNR or withdrawal of care, Hospice)? DNR status @ -No What co-morbidities impacted this encounter? (DM, HTN, Smoking, COPD, CAD, Cancer, CVA, ARF, Chemo, Hep., AIDS, mental health diagnosis, sleep apnea, morbid obesity)? @ -None Was patient admitted / discharged? Hospital course, mention meds given and route, prescriptions, significant lab abnormalities, going to OR and other pertinent info. @ -Patient presents with some diarrhea and abdominal discomfort and tachycardia. Heart rate has been stable since arrival. Patient feels much better with medications and discomfortable with discharge. Patient updated on results and need for follow-up. Undiagnosed new problem with uncertain prognosis? @ -No Drug Therapy requiring intensive monitoring for toxicity (Heparin, Nitro, Insulin, Cardizem)? @ -No Were any procedures done? @ -No Diagnosis/symptom? @ -Diarrhea, tachycardia Acute, or Chronic, or Acute on Chronic? @ -, Acute Uncomplicated (without systemic symptoms) or Complicated (systemic symptoms)? @ -Default Side effects of treatment? @ -No Exacerbation, Progression, or Severe Exacerbation? @ -No Poses a threat to life or bodily function? How? (Chest pain, [place], [place], pneumonia, PE, COPD, DKA, ARF, appy, cholecystitis, CVA, Diverticulitis, Homicidal, Suicidal, threat to staff... and all critical care pts) @ -No - Lab Data Result diagrams: 05/20/24 10:26 05/20/24 10:26 Lab Results 05/20/24 05/20/24 05/20/24 Range/Units 10:26 10:26 10:26 WBC 13.8 H (3.8-10.6) k/uL RBC 5.21 (4.30-5.90) m/uL Hgb 16.6 (13.0-17.5) gm/dL Hct 49.6 (39.0-53.0) % MCV 95.4 (80.0-100.0) fL MCH 31.9 (25.0-35.0) pg MCHC 33.4 (31.0-37.0) g/dL RDW 12.8 (11.5-15.5) % Plt Count 187 (150-450) k/uL MPV 8.0 Neutrophils % 91 % Lymphocytes % 4 % Monocytes % 4 % Eosinophils % 1 % Basophils % 0 % Neutrophils # 12.6 H (1.3-7.7) k/uL Lymphocytes # 0.5 L (1.0-4.8) k/uL Monocytes # 0.5 (0-1.0) k/uL Eosinophils # 0.1 (0-0.7) k/uL Basophils # 0.0 (0-0.2) k/uL PT 12.5 (10.0-12.5) sec INR 1.2 H (<1.2) APTT 29.2 (22.0-30.0) sec Sodium 137 (137-145) mmol/L Potassium 4.2 (3.5-5.1) mmol/L Chloride 101 (98-107) mmol/L Carbon Dioxide 28 (22-30) mmol/L Anion Gap 8 mmol/L BUN 17 (9-20) mg/dL Creatinine 1.22 (0.66-1.25) mg/dL Est GFR (CKD-EPI)AfAm 72 (>60 ml/min/1.73 sqM) Est GFR (CKD-EPI)NonAf 63 (>60 ml/min/1.73 sqM) Glucose 162 H (74-99) mg/dL Calcium 9.5 (8.4-10.2) mg/dL Total Bilirubin 0.7 (0.2-1.3) mg/dL AST 26 (17-59) U/L ALT 31 (4-49) U/L Alkaline Phosphatase 48 (38-126) U/L Total Protein 7.7 (6.3-8.2) g/dL Albumin 4.6 (3.5-5.0) g/dL Amylase 51 (30-110) U/L Lipase 133 (23-300) U/L Disposition Clinical Impression: Diarrhea, Tachycardia Disposition: HOME SELF-CARE Condition: Stable Instructions (If sedation given, give patient instructions): Acute Diarrhea (ED), Tachycardia (ED) Additional Instructions: Continue to monitor heart rate. Please do follow-up with your primary care physician in the next couple of days for recheck. Return for increased heart rate, fever, abdominal pain, not tolerating oral intake, worsening or changing symptoms or any other concerns. Prescription has been sent to pharmacy. Prescriptions: Dicyclomine [Bentyl] 20 mg PO QID PRN #15 tablet PRN Reason: Pain Is patient prescribed a controlled substance at d/c from ED?: No Referrals: [facility],Clinic [Primary Care Provider] - 1-2 days Time of Disposition: 12:00
[2024-05-20 10:38] LABS: Basophils % (A) 0 %; Eosinophils # (A) 0.1 k/uL (0-0.7); Eosinophils % (A) 1 %; HCT 49.6 % (39.0-53.0); HGB 16.6 gm/dL (13.0-17.5); Lymphocytes # (A) 0.5 k/uL (1.0-4.8); Lymphocytes % (A) 4 %; MCH 31.9 pg (25.0-35.0); MCHC 33.4 g/dL (31.0-37.0); MCV 95.4 fL (80.0-100.0); Monocytes # (A) 0.5 k/uL (0-1.0); Monocytes % (A) 4 %; Neutrophils # (A) 12.6 k/uL (1.3-7.7); Neutrophils % (A) 91 %; Platelet Count 187 k/uL (150-450); RBC 5.21 m/uL (4.30-5.90); RDW 12.8 % (11.5-15.5); WBC 13.8 k/uL (3.8-10.6)
[2024-05-20 10:50] LABS: ALT 31 U/L (4-49); AST 26 U/L (17-59); African American GFR (CKD) 72 (>60 ml/min/1.73 sqM); Albumin 4.6 g/dL (3.5-5.0); Alkaline Phosphatase 48 U/L (38-126); Amylase 51 U/L (30-110); Anion Gap 8 mmol/L; Blood Urea Nitrogen 17 mg/dL (9-20); Calcium 9.5 mg/dL (8.4-10.2); Carbon Dioxide 28 mmol/L (22-30); Chloride 101 mmol/L (98-107); Glucose 162 mg/dL (74-99); Lipase 133 U/L (23-300); Non-African American GFR(CKD) 63 (>60 ml/min/1.73 sqM); Potassium 4.2 mmol/L (3.5-5.1); Sodium 137 mmol/L (137-145); Total Bilirubin 0.7 mg/dL (0.2-1.3); Total Protein 7.7 g/dL (6.3-8.2)
[2024-05-20] MEDS: SODIUM CHLORIDE 0.9% 1,000 ML IV STA (10:53)
[2024-05-20] MEDS: FAMOTIDINE 20 MG/2 ML VIAL IV STA (10:54)
[2024-05-20] MEDS: ONDANSETRON 4 MG/2 ML VIAL IVP STA (10:54)
[2024-05-20 10:55] LABS: INR 1.2 (<1.2); Partial Thromboplastin Time 29.2 sec (22.0-30.0); Prothrombin Time 12.5 sec (10.0-12.5)
[2024-05-20] MEDS: DICYCLOMINE 10 MG/ML 2 ML AMP IM STA (11:12)
[2024-05-20 11:21] VITALS: RESP 18; TEMP 98.5
--- NOTE | 2024-05-20 11:46 | XR ---
EXAMINATION TYPE: XR KUB DATE OF EXAM: 05/20/2024 10:45 AM COMPARISON: None CLINICAL INDICATION: Male, 64 years old with history of abdominal pain; [facility] TECHNIQUE: One radiographic view of the abdomen was obtained. FINDINGS: The bowel gas pattern is nonspecific without dilated loops of small or large bowel. . Fecal material and gas are demonstrated throughout the colon and rectum. There is no evidence for organomegaly or pneumoperitoneum. The osseous structures are intact. No ab normal calcifications are present. IMPRESSION: Nonspecific bowel gas pattern without radiographic evidence for acute process. [facility], , 05/20/2024 11:43 AM
[2024-05-20 12:20] VITALS: BP 102/70; PULSE 75
== END 2024-05-20 12:37 | disposition home or self-care (01) ==
LOC: EC 09:59
DX: R19.7 Diarrhea, unspecified (principal); R00.0 Tachycardia, unspecified; F17.200 Nicotine dependence, unspecified, uncomplicated
CPT/HCPCS: 36415; 93005; 80053; 82150; 83690; 85025; 85610; 85730; 74018; 99284; 96374; 96375; 96361; 96372; J0500; J2405; J3490

== ENCOUNTER → 2024-10-10 | Day surgery (SDC) | payer OTHER ==
[2024-10-08 13:16] VITALS: BMI 28.8
[~2024-10-10] MED LIST changes: -LACTATED RINGERS 1,000 ML IV SCH; -LIDOCAINE 1% 20 ML VIAL (10MG/ML) FOR IV START INTRADERMA ONE; -MIDAZOLAM 2 MG/2 ML VIAL ONE; +SODIUM CHLORIDE 0.9% 500 ML IV SCH; -fentaNYL (PF) 50 MCG/ML 2 ML AMP ONE
[2024-10-10 07:16] VITALS: TEMP 96
[2024-10-10] MEDS: SODIUM CHLORIDE 0.9% 500 ML 500 ML IV ONE (07:21)
--- NOTE | 2024-10-10 07:45 | P.PCN ---
Date of Procedure: 10/10/24 Operative Findings: Cardioversion Report Performing physician Raghavendra Barnes M.D. Procedure performed Successful cardioversion of atrial fibrillation to normal sinus mechanism using 120 J at first attempt Indication Symptomatic atrial fibrillation Complication None Level of sedation The procedure was performed under deep sedation using propofol with ANTHROPOLOGICAL LINGUIST in the room Procedure description After obtaining an informed consent the patient was brought to the recovery room. Sedation was introduced using propofol with ANTHROPOLOGICAL LINGUIST in the room. Subsequently the patient cardioverted from atrial fibrillation to normal sinus mechanism using 200 J and first attempt Conclusion Successful cardioversion of atrial fibrillation to normal sinus mechanism using 200 J Postprocedure management Continue the current medical regimen Continue oral anticoagulation Follow-up with the patient
[2024-10-10 07:53] LABS: African American GFR (CKD) >90 (>60 ml/min/1.73 sqM); Anion Gap 9 mmol/L; Blood Urea Nitrogen 27 mg/dL (9-20); Calcium 10.3 mg/dL (8.4-10.2); Carbon Dioxide 30 mmol/L (22-30); Chloride 101 mmol/L (98-107); Glucose 119 mg/dL (74-99); Non-African American GFR(CKD) 82 (>60 ml/min/1.73 sqM); Sodium 140 mmol/L (137-145)
[2024-10-10 07:57] LABS: Potassium 4.9 mmol/L (3.5-5.1)
[2024-10-10 08:25] VITALS: RESP 16
[2024-10-10 08:51] VITALS: BP 112/75; PULSE 70
== END ==
LOC: OR 05:45
PROVIDERS: ATTEND Internal Medicine Interventional Cardiology
DX: I48.0 Paroxysmal atrial fibrillation (principal); I25.10 Atherosclerotic heart disease of native coronary artery without angina pectoris; I10 Essential (primary) hypertension; E78.5 Hyperlipidemia, unspecified; G47.33 Obstructive sleep apnea (adult) (pediatric); I73.9 Peripheral vascular disease, unspecified; I25.5 Ischemic cardiomyopathy; F17.200 Nicotine dependence, unspecified, uncomplicated; Z79.82 Long term (current) use of aspirin; Z79.01 Long term (current) use of anticoagulants; Z79.899 Other long term (current) drug therapy
CPT/HCPCS: 92960; 80048; J2704

== ENCOUNTER → 2024-11-07 | Outpatient (CLI) | payer OTHER ==
--- NOTE | 2024-11-08 11:19 | CT ---
EXAMINATION TYPE: CT chest wo con DATE OF EXAM: 11/07/2024 3:48 PM COMPARISON: 06/26/2022. 01/18/2023. CLINICAL INDICATION: Male, 64 years old with history of R91.8 OTHER NONSPECIFIC ABNORMAL FINDING OF L ALESHA F; [facility], follow up prior study TECHNIQUE: Multiple axial images were obtained through the chest. Sagittal and coronal reformats were created for review. MIP was performed on a separate workstation. Contrast used: mL of (None if empty) Oral contrast used: (None if empty) CT DLP: 640 mGycm, Automated exposure control for dose reduction was used. FINDINGS: LUNGS/ PLEURA: No focal consolidation, pneumothorax or pleural effusion. Right intrafissural lymph no de series 3 image 36, unchanged. Right lower lobe pulmonary nodule measuring 5 mm series 3 image 40. Unchanged intrafissural lymph node series 3 image 27 on the right unchanged. AIRWAY: Patent and unremarkable. HEART: Size within normal limits. Moderate to severe coronary artery calcifications present. MEDIASTINUM: No gross evidence of adenopathy. VASCULATURE: No aortic aneurysm. MUSCULOSKELETAL: Mild disc degeneration changes are present throughout the thoracolumbar spine second greta to osteophyte formation and facet joint arthropathy. Surgical changes in the cervical spine parti ally visualized. SOFT TISSUES/LYMPH NODES: Unremarkable. LOWER NECK: No significant findings. UPPER ABDOMEN: Gallstone in the gallbladder neck. IMPRESSION: 1. No new or enlarging pulmonary nodules. Stable pulmonary nodules. 2. Cholelithiasis with gallstone in the gallbladder neck. 3. Moderate to severe coronary artery atherosclerosis. [facility], , 11/08/2024 11:17 AM
== END | disposition home or self-care (01) ==
LOC: RADCTMAIN 15:03
PROVIDERS: ATTEND Internal Medicine
DX: R91.8 Other nonspecific abnormal finding of lung field (principal); K80.20 Calculus of gallbladder without cholecystitis without obstruction; I25.10 Atherosclerotic heart disease of native coronary artery without angina pectoris
CPT/HCPCS: 71250